=== PATIENT | male | born 1950 | race Caucasian/White ===

== ENCOUNTER 2016-07-23 14:42 | Emergency (ER) | payer MEDICARE, OTHER ==
[~2016-07-23] VITALS: Ht 190.5 cm; Wt 120.0 kg
[~2016-07-23 14:42] MED LIST: ATEN25TA7 PO; COR200 PO; GLUCOSAMINE PO; LOV100 SQ; SMV40T PO; WARF10TA2 PO; [UNRECOGNIZED DRUG - CODE] PO
[2016-07-23 15:10] VITALS: BP 123/70; PULSE 60; RESP 16; O2SAT 97
--- NOTE | 2016-07-23 15:37 | ED.REPORT ---
HPI-Trauma Multiple Date of Service Jul 23, 2016 ED Provider: Wero Galvin MD Abdulkadir is a 66-year-old male who presents the emergency department for left- sided rib pain. Patient states that he slipped while climbing this pickup truck , fell on his hands and knees on a tailgate and then fell off the back of tailgate, landing on his back. He reports pain in his left lower ribs, aggravated by deep breaths. He reports that the pain was initially mild and has worsened since the incident. He reports he struck his head but denies losing consciousness, vomiting, seizures, worsening headache. He does admit taking warfarin for an artificial aortic valve. He denies neck pain or neurological symptoms. Currently takes hydrocodone/APAP 10/500 for chronic back pain. Nursing Notes Stated Complaint: FELL/HIP PAIN Chief Complaint: Back Pain or Injury Nursing Notes Reviewed: Yes Allergies: Coded Allergies: No Known Allergies (Verified , 04/18/09) Scheduled Amiodarone-Expunged Drug, Do Not Renew! (Amiodarone-Expunged Drug, Do Not Renew! ) 200 Mg Tablet 400 MG PO BID Atenolol-Expunged Drug, Do Not Renew! (Atenolol-Expunged Drug, Do Not Renew!) 25 Mg Tablet 25 MG PO DAILY Enoxaparin-Expunged Drug, Do Not Renew! (Lovenox-Expunged Drug, Do Not Renew!) 100 Mg/Ml Disp.syrin 100 MG SQ BID Lidocaine (Lidoderm) 700 Mg Adh..patch 1 PATCH TP UD Oxcarbazepine-Expunged Drug, Do Not Renew! (Trileptal-Expunged Drug, Do Not Renew!) 150 Mg Tablet 150 MG PO DAILY Simvastatin-Expunged Drug, Choose New Med! (Simvastatin-Expunged Drug, Choose New Med!) 40 Mg Tablet 40 MG PO QAM Warfarin Sodium Inactive Drug Do Not Use (Coumadin Inactive Drug Do Not Use) 10 Mg Tablet 10 MG PO SEE NOTES ON SUN, TUES, WED, FRI, SAT Warfarin Sodium Inactive Drug Do Not Use (Coumadin Inactive Drug Do Not Use) 10 Mg Tablet 12.5 MG PO MON, THUR Scheduled PRN Glucosamine Sulfate (Glucosamine) Tab 1,500 MG PO QAM PRN PRN General Time Seen by Provider: 15:36 Chief Complaint Other (left rib pain) Review of Systems Review of Systems Note: Negative unless stated otherwise in history of present illness Physical Exam General: Well appearing, well developed, well nourished, no acute distress. Left ribs: Patient is lying on a gurney splinting with a pillow. Very tender left lateral ribs. Head: Atraumatic, normocephalic. No mastoid tenderness. Eyes: No scleral icterus or injection. No discharge. PERRL. Vision grossly intact. Ears: Pinna and tragus nontender with manipulation. External auditory canal patent, atraumatic and without discharge. Tympanic membrane hernadez, shiny and translucent without fluid, bulging, retraction or perforation. Hearing grossly intact. Nose: Symmetrical, nares patent without discharge. No frontal or maxillary sinus tenderness. Mouth/pharynx: normal dentition, mucus membranes moist. Tonsils 2+ and symmetrical, uvula midline. Pharynx noninjected, no cobblestoning or discharge. Voice clear. Neck: No midline cervical tenderness. Trachea midline. Respiratory: Regular rate and rhythm. Breath sounds present, clear to auscultation and equal bilaterally. Cardiovascular: Regular rate and rhythm, without murmur, gallop or rub. No pedal edema. Gastrointestinal: Abdomen flat and non-tender without guarding or rebound. Bowel sounds normoactive. Skin: Warm and dry. Neurological: Grossly nonfocal. Cranial nerves: Vision grossly intact, PERRL, EOMI. Facial motion symmetrical, sensation to light touch over forehead, maxilla and mandible present and equal B /L. Voice clear and fluent, no drooling/pooling of saliva, uvula rises midline. Psychological: Alert and oriented. Speech appropriate, linear and logical. Behavior appropriate. Initial Vital Signs Vital Signs (First) Date Time Temp Pulse Resp B/P Pulse Ox O2 Delivery O2 Flow Rate FiO2 07/23/16 15:10 36.4 60 16 123/70 97 Room Air Initial VS: Reviewed, Vital signs normal Interpretation & Diagnostics Lab Results Interpretation Result Diagram: 07/23/16 1623 07/23/16 1623 Test 07/23/16 16:23 White Blood Count 11.3th/mm3 (3.8-10.1) Red Blood Count 4.49mil/mm3 (4.40-5.80) Hemoglobin 13.2g/dL (13.8-17.2) Hematocrit 40.7% (41.0-50.0) Mean Corpuscular Volume 90.6fL (81-100) Mean Corpuscular Hemoglobin 29.4pg (27.0-35.0) Mean Corpuscular Hemoglobin Concent 32.4% (32.0-37.0) Red Cell Distribution Width 14.9% (12.3-15.4) Platelet Count 190bil/L (150-400) Neutrophils (%) (Auto) 79.9% (40-74) Lymphocytes (%) (Auto) 8.1% (14-46) Monocytes (%) (Auto) 9.4% (4-12) Eosinophils (%) (Auto) 2.0% (0-5) Basophils (%) (Auto) 0.2% (0-3) Prothrombin Time 30.4sec (8.1-12.5) Prothromb Time International Ratio 2.78ratio Sodium Level 139mEq/L (134-144) Potassium Level 4.5mEq/L (3.5-5.2) Chloride Level 102mEq/L (97-108) Carbon Dioxide Level 24mmol/L (18-29) Blood Urea Nitrogen 20mg/dL (8-27) Creatinine 1.00mg/dL (0.76-1.27) Estimat Glomerular Filtration Rate 79mL/min (>59) Glucose Level 112mg/dL (60-99) Calcium Level 9.2mg/dL (8.5-10.1) Total Bilirubin 0.5mg/dL (0.0-1.2) Aspartate Amino Transf (AST/SGOT) 26U/L (0-50) Alanine Aminotransferase (ALT/SGPT) 20U/L (0-44) Alkaline Phosphatase 65U/L (25-160) Total Protein 6.8g/dL (6.4-8.4) Albumin 4.1g/dL (3.4-5.0) Hold Hobbs Top Tube Received (Received) X-Ray Chest Interpretation Chest Xray Interpretation: PROCEDURE: X-RAY LEFT RIBS, TWO VIEWS ([id number]) INDICATIONS: trauma , fall IMPRESSION: Displaced lateral left rib fractures. No pneumothorax. Interpretation / Wet Read by: Interpret - Radiologist, Interp - P CT Head Interpretation PROCEDURE: CT BRAIN WITHOUT CONTRAST ([id number]) INDICATIONS: truama, on coumadin IMPRESSION: 1. No acute intracranial disease process. 2. Small right thalamic subacute versus chronic lacunar infarct. 3. Small, chronic right cerebellar hemisphere lacunar infarct. Re-Eval/Medical Decision Med Decision/Clinical Course Otherwise healthy 66-year-old male presents with a chief complaint of left rib pain and patient states that he fell while trying to climb into the back of his pickup truck and landed on his back. Admits hitting his head but denies losing consciousness, vomiting, worsening headache. Admits use of blood thinners. Patient reports that his rib pain has steadily been worsening since the incident. Admits pain with inspiration. Denies shortness of breath. Physical exam is reassuring regarding head injury or neck injury with no neurological deficits. The patient is quite tender over his left lower lateral ribs. Head CT performed out of consideration for warfarin use reveals no intracranial bleeding but does reveal old lacunar infarcts. Patient states this is consistent with his medical history. CBC reveals slight leukocytosis and extremely slight anemia. INR is within therapeutic window. X-ray of the ribs reveals mildly displaced rib fractures. Prescribe him incentive spirometry to be performed every hour while awake. The patient takes hydrocodone/APAP 10/500 every evening for back pain. I advised him to take 2 extra strength Tylenol every 6 hours and replace one of the pills with his usual pain pill if he needed additional analgesia. I also prescribed Lidoderm patch. I discussed all findings with the patient and his family, answered all questions to the best of my ability. Advised primary care follow-up in one week and gave return precautions. Discharge & Departure Impression: Primary Impression: Rib fractures Encounter type: initial encounter Rib fracture type: multiple ribs Fracture type: closed Laterality: left Qualified Code: S22.42XA - Multiple fractures of ribs, left side, initial encounter for closed fracture Disposition: Home Discharge Condition All VS Reviewed: Yes Condition: Stable Patient Instructions: Rib Fracture (ED) Additional Instructions: Evaluation for left rib pain emergency Department. We were initially concerned about a possible head injury due to your use of blood thinners. CT was reassuring on his front, but did show evidence of some old, small strokes. X- ray reveals fractures in your left ribs, but no damage to the lungs. treatment for this is typically symptomatic, with pain control, and preventative with incentive spirometry to prevent pneumonia. I have prescribed Lidoderm patches for pain. To this he should add 1000 mg of Tylenol (2 extra strength) every 6 hours. Feeding more pain control you can replace one of the Tylenol pills with your usual Vicodin pill. Follow up with her primary care provider in about 1 week to make sure this is healing as expected. Return to emergency department for any new or worsening symptoms including increasing pain or difficulty breathing. Referrals: Teddy Patiño MD (PCP) EDSupervising Provider for APC: Wero Galvin MD Attending Statement Attending attestation: I saw this patient in conjunction with Robson Fernández PA-C. Patient was discussed in detail and I agree with the workup, evaluation, treatment and disposition. Wero Galvin MD copies to: Teddy Patiño MD, Beck O MD Jul 23, 2016 15:37 Robson Fernández PA-C Jul 23, 2016 16:41
--- NOTE | 2016-07-23 16:23 | DRSVH ---
PROCEDURE: X-RAY LEFT RIBS, TWO VIEWS ([id number]) INDICATIONS: trauma , fall TECHNIQUE: 4 views of the left ribs were acquired. COMPARISON: None. FINDINGS: Surgical changes and devices: Patient is status post CABG. The cardiac defibrillator is unremarkable. Bones and chest wall: There are minimally displaced lateral left seventh and eighth ribs. No pneumoth orax. Mild atelectasis is present at the left lung base. Lungs and pleura: The visualized lung appears clear. No pleural effusions or pneumothorax are visib le. IMPRESSION: Displaced lateral left rib fractures. No pneumothorax. Dictated by: Juliette Ngo M.D. on 07/23/2016 at 16:19 Approved by: Juliette Ngo M.D. on 07/23/2016 at 16:21
--- NOTE | 2016-07-23 16:27 | DRSVH ---
PROCEDURE: CT BRAIN WITHOUT CONTRAST ([id number]) INDICATIONS: truama, on coumadin TECHNIQUE: Noncontrast 4.5 mm thick angled axial sections acquired from the foramen magnum to the vertex, with c oronal reformats. COMPARISON: [facility], CT, BRAIN W/O CONTRAST, 05/16/2007, 0:29. FINDINGS: Image quality: Excellent. CSF spaces: Basal cisterns are patent. No extra-axial fluid collections. Ventricles are normal in size and shape. Brain: No midline shift. No intracranial masses or hemorrhage. Oropeza-white matter interface is norm al. Small subacute versus chronic lacunar infarct noted in the right thalamus. Chronic right cerebell ar hemisphere lacunar infarct. Skull and face: Calvarium and visualized facial bones are intact, without suspicious lesions. Sinuses: Mucosal thickening noted in the maxillary sinuses bilaterally and the left sphenoid sinus. T he mastoids are clear. IMPRESSION: 1. No acute intracranial disease process. 2. Small right thalamic subacute versus chronic lacunar infarct. 3. Small, chronic right cerebellar hemisphere lacunar infarct. Dictated by: Judi Olivares MD, PhD on 07/23/2016 at 16:23 Approved by: Judi Olivares MD, PhD on 07/23/2016 at 16:26
[2016-07-23 16:38] LABS: BASOPHILS % (AUTO) 0.2 % (0-3); MONOCYTES % (AUTO) 9.4 % (4-12); Mean Corpuscular Hemoglobin 29.4 pg (27.0-35.0); Mean Corpuscular Volume 90.6 fL (81-100); NEUTROPHILS % (AUTO) 79.9 % (40-74); Platelet Count 190 bil/L (150-400)
[2016-07-23] MEDS ORDERED: Ketorolac 30 mg/mL 2 mL Inj IM ONE (16:45)
[2016-07-23 16:52] LABS: INR 2.78 ratio
[2016-07-23] MEDS ORDERED: LIDO700A6 TP (16:58)
[2016-07-23 18:17] VITALS: BP 132/71; PULSE 64; RESP 18; O2SAT 94
== END 2016-07-23 18:18 | disposition home or self-care (01) ==
LOC: SED 14:42
DX: S22.42XA Multiple fractures of ribs, left side, initial encounter for closed fracture (principal); W17.89XA Other fall from one level to another, initial encounter; Y93.39 Activity, other involving climbing, rappelling and jumping off; Y92.812 Truck as the place of occurrence of the external cause; Y99.8 Other external cause status; Z79.01 Long term (current) use of anticoagulants

== ENCOUNTER 2016-07-26 19:29 | Inpatient (IN) | payer MEDICARE, OTHER ==
[~2016-07-26] VITALS: Ht 190.5 cm; Wt 113.2 kg
[~2016-07-26 19:29] MED LIST changes: +LIDO700A6 TP
[2016-07-26 19:36] VITALS: BP 90/62; PULSE 70; RESP 16; O2SAT 99
--- NOTE | 2016-07-26 19:44 | ED.REPORT ---
HPI-General Illness Date of Service Jul 26, 2016 ED Provider: Federica Castillo MD This is a 66 year old male with a history hypertension and recent diagnosis of left rib fracture presenting to the emergency department complaining of worsening pain associated with shortness of breath. Pt seen in the ED one week ago and diagnosed with L rib fracture without pneumothorax due to traumatic injury. Pain is now worsening and exacerbated by deep inspiration. Associated symptoms include abdominal distention that began one day ago. Pt states pain and abdominal distention is causing shortness of breath. Also reports reports decreased flatus. Denies abdominal pain, fever, chills, nausea, vomiting, or cough. Nursing Notes Stated Complaint: RIB PAIN Chief Complaint: General Complaint Nursing Notes Reviewed: Yes Allergies: Coded Allergies: No Known Allergies (Verified , 07/26/16) Scheduled Amiodarone-Expunged Drug, Do Not Renew! (Amiodarone-Expunged Drug, Do Not Renew! ) 200 Mg Tablet 400 MG PO BID Atenolol-Expunged Drug, Do Not Renew! (Atenolol-Expunged Drug, Do Not Renew!) 25 Mg Tablet 25 MG PO DAILY Enoxaparin-Expunged Drug, Do Not Renew! (Lovenox-Expunged Drug, Do Not Renew!) 100 Mg/Ml Disp.syrin 100 MG SQ BID Lidocaine (Lidoderm) 700 Mg Adh..patch 1 PATCH TP UD Oxcarbazepine-Expunged Drug, Do Not Renew! (Trileptal-Expunged Drug, Do Not Renew!) 150 Mg Tablet 150 MG PO DAILY Simvastatin-Expunged Drug, Choose New Med! (Simvastatin-Expunged Drug, Choose New Med!) 40 Mg Tablet 40 MG PO QAM Warfarin Sodium Inactive Drug Do Not Use (Coumadin Inactive Drug Do Not Use) 10 Mg Tablet 10 MG PO SEE NOTES ON SUN, TU, WED, FRI, SAT Warfarin Sodium Inactive Drug Do Not Use (Coumadin Inactive Drug Do Not Use) 10 Mg Tablet 12.5 MG PO SAT, Scheduled PRN Glucosamine Sulfate (Glucosamine) Tab 1,500 MG PO QAM PRN PRN General Time Seen by MD: 19:43 Chief Complaint Other Hx Obtained From: Patient Arrived By: Walk-in Sudden in Onset?: Yes Onset Occurred: 1 week ago Symptom Duration: Since onset Severity: Current: Mild Pertinent Negative: Pt denies other symptoms Recent Healthcare: No recent doctor visit, No recent hospitalization Similar Sx Previous: No Past Medical History Past Medical History Hx rib fracture Reports: Hypertension Past Surgical History Open heart surgery Mechanical valve Ambulatory Status Independent Review of Systems Full Review of Systems Constitutional: Denies: Chills, Fever Ears / Nose / Throat: Denies: Sore throat Respiratory: Reports: Shortness of breath, Denies: Non-productive cough Cardiovascular: Reports: Chest pain (rib pain ) GI: Reports: Constipation, Denies: Abdominal pain, Diarrhea, Nausea, Vomiting Complete sys rev & neg: except as marked. Physical Exam Vital Signs Vital Signs Date Time Temp Pulse Resp B/P Pulse Ox O2 Delivery O2 Flow Rate FiO2 07/26/16 22:41 36.3 58 16 131/79 93 Room Air 07/26/16 19:36 36.7 70 16 90/62 99 Room Air Initial VS: Reviewed Head / Eyes: Atraumatic, Normocephalic, PERRL ENT: Mucous membranes moist, Conjunctiva normal, No scleral icterus Neck: Supple, Non-tender, Full range of motion Cardiovascular: Regular rate & rhythm, Heart sounds normal, Intact distal pulses Extremities: Vascular intact, Neuro intact, No swelling, No tenderness Skin: Warm, Dry, No cyanosis Neurologic: Alert, Oriented, Nonfocal Psychiatric: Mood/affect normal, Behavior normal, Normal thought content Respiratory / Chest: Breath sounds NL, No respiratory distress, No rales, No rhonchi, No wheezing Point tenderness on left mid-axillary line approximately at ribs 4-10 without obvious trauma or defomirty Abdomen: Non-tender, No rebound, BS normoactive Bowel Sounds / Distention: Positive: Distention moderate Abdomen tense without fluid wave, easily reducible umbilical hernia Interpretation & Diagnostics Interpretation & Diagnostics: ABD CT IMPRESSION: 1. Evolving mid small bowel obstruction with transition point in the right lower quadrant. In the absence of any associated hernias or mass lesions, obstruction is presumably secondary to adhesions. No findings to suggest bowel ischemia. 2. Posterior left lung base confluent atelectasis versus pneumonia. 3. Cardiomegaly hepatic simple cyst again noted, as well as inferior left renal cortical exophytic simple cyst. Previously noted hemorrhagic or proteinaceous hyperdense cyst arising from the medial right kidney has decreased in size. Dictated by: Louie Isaac M.D. on 07/26/2016 at 21:29 Approved by: Louie Isaac M.D. on 07/26/2016 at 21:41 Lab Results Interpretation Result Diagram: 07/26/16202607/26/162026 Test 07/26/16 20:27 07/26/16 22:18 White Blood Count 11.4th/mm3 (3.8-10.1) Red Blood Count 4.64mil/mm3 (4.40-5.80) Hemoglobin 13.6g/dL (13.8-17.2) Hematocrit 41.4% (41.0-50.0) Mean Corpuscular Volume 89.2fL (81-100) Mean Corpuscular Hemoglobin 29.3pg (27.0-35.0) Mean Corpuscular Hemoglobin Concent 32.9% (32.0-37.0) Red Cell Distribution Width 14.8% (12.3-15.4) Platelet Count 195bil/L (150-400) Neutrophils (%) (Auto) 79.5% (40-74) Lymphocytes (%) (Auto) 6.2% (14-46) Monocytes (%) (Auto) 13.0% (4-12) Eosinophils (%) (Auto) 0.8% (0-5) Basophils (%) (Auto) 0.2% (0-3) Prothrombin Time 47.4sec (8.1-12.5) Prothromb Time International Ratio 4.30ratio Sodium Level 135mEq/L (134-144) Potassium Level 4.0mEq/L (3.5-5.2) Chloride Level 99mEq/L (97-108) Carbon Dioxide Level 22mmol/L (18-29) Blood Urea Nitrogen 38mg/dL (8-27) Creatinine 1.13mg/dL (0.76-1.27) Estimat Glomerular Filtration Rate 69mL/min (>59) Glucose Level 108mg/dL (60-99) Lactic Acid Level 1.0mmol/L (0.4-2.0) Calcium Level 9.6mg/dL (8.5-10.1) Magnesium Level 1.8mg/dL (1.6-2.6) Total Bilirubin 1.1mg/dL (0.0-1.2) Aspartate Amino Transf (AST/SGOT) 25U/L (0-50) Alanine Aminotransferase (ALT/SGPT) 20U/L (0-44) Alkaline Phosphatase 67U/L (25-160) Total Protein 6.4g/dL (6.4-8.4) Albumin 3.9g/dL (3.4-5.0) Lipase 11U/L (13-60) Urine Color Dark yellow (YELLOW) Urine Appearance Clear (CLEAR,HAZY) Urine pH 5.0 (5.0-8.0) Urine Specific [place] 1.025 (1.003-1.035) Urine Protein Tracemg/dL (NEG,TRACE) Urine Glucose (UA) Negativemg/dL (NEGATIVE) Urine Ketones Negativemg/dL (NEGATIVE) Urine Occult Blood Trace (NEGATIVE) Urine Nitrite Negative (NEGATIVE) Urine Bilirubin Moderate (NEGATIVE) Urine Ictotest Positive (Negative) Urine Urobilinogen 1.0mg/dL (NORMAL) Urine Leukocyte Esterase Negative (NEGATIVE) Urine RBC 11-50/hpf (0-2) Urine WBC 0-5/hpf (0-5) Urine Epithelial Cells Moderate/hpf (NONE-MOD) Urine Crystals Amorphous urates (NONE Urine Bacteria Few/hpf (NONE-FEW) Urine Hyaline Casts 5/20/lpf (NONE) Urine Granular Casts None seen (NONE SEEN) Urine Waxy Casts None seen (NONE SEEN) Urine Red Blood Cell Casts None seen (NONE SEEN) Urine White Blood Cell Casts None seen (NONE SEEN) Urine Mucus Present (None Seen) Urine Trichomonas None seen (NONE SEEN) Urine Yeast None (NONE SEEN) Urinalysis Comment None Urine Culture Reflexed Not indicated Re-Eval/Medical Decision Med Decision/Clinical Course 66-year-old male with extensive past medical history including mechanical valve here with worsening pain with inspiration and abdominal distention. Differential diagnosis includes but is not limited to pneumonia versus pleural effusion versus large versus small bowel obstruction. Labs remarkable for mild leukocytosis and mild anemia, otherwise normal CBC. CMP is unremarkable. Patient's CT scan shows evidence of a small bowel obstruction with transition point in the right lower quadrant. I discussed the case with surgeon evaluation specialist Dr. Mcgee who will see the patient in the morning. Patient has been accepted by hospitalist service and is amenable to admission at this time. Dr. Mcgee did not request NG tube at this time since patient is not vomiting. Time of Eval: 22:02 Re-Evaluation/Progress Note: Discussed lab and imaging results and need for admission. Pt understands and agrees with plan, all questions addressed. Consultation #1: Referral / Consult Name: Mahendra Mcgee MD Consulted With: Surgeon Call Returned at: 22:02 Neurosurgery Spine Physician: Will see patient, Agrees with eval, Agrees with plan Consultation #2: Referral / Consult Name: Thor Cintron MD Consulted With: Hospitalist Call Returned at: 22:12 Neurosurgery Spine Physician: Accepts admit Counseled Regarding: Diagnosis, Lab results, Need for follow-up, Need for admission Discharge & Departure Primary Impression: Small bowel obstruction Disposition: ADMITTED TO HOSPITAL Discharge Condition All VS Reviewed: Yes Condition: Stable Referrals: Teddy Patiño MD (PCP) Scribe Attestation Portions of this note were transcribed by Jodee Ulloa. I, Dr. Castillo personally performed the history, physical exam and medical decision-making; I reviewed and confirmed the accuracy of the information in the transcribed note. Signed by: Jodee Ulloa. 07/26/2016, 23:00. Federica Castillo MD Jul 26, 2016 19:44 JODEE ULLOA Jul 26, 2016 19:46
[2016-07-26 20:46] LABS: BASOPHILS % (AUTO) 0.2 % (0-3); EOSINOPHILS % (AUTO) 0.8 % (0-5); Mean Corpuscular Hemoglobin 29.3 pg (27.0-35.0); Mean Corpuscular Volume 89.2 fL (81-100); NEUTROPHILS % (AUTO) 79.5 % (40-74); Platelet Count 195 bil/L (150-400)
[2016-07-26 21:06] LABS: Magnesium 1.8 mg/dL (1.6-2.6)
[2016-07-26] MEDS ORDERED: 0.9% Sodium Chloride 500 ML IV ONE (21:40)
--- NOTE | 2016-07-26 21:47 | DRSVH ---
PROCEDURE: CT ABDOMEN AND PELVIS WITH CONTRAST ([id number]) INDICATIONS: 66 year-old male with abdominal distention. TECHNIQUE: After the administration of intravenous contrast, 5 mm thick sections acquired from the diaphragm to the symphysis. 5 mm coronal and sagittal reformats were acquired. For radiation dose reduction, the following was used: automated exposure control, adjustment of mA and/or kV according to patient siz e. COMPARISON: [facility], CT, ABD/PELVIS W&WO CON (PNL), 11/30/2011, 9:46. FINDINGS: Image quality: Excellent. ABDOMEN: Lung bases: There is patchy posterior right lung base atelectasis, and more confluent posterior left lung base airspace opacity with internal air bronchograms. There is mild cardiomegaly status post pac emaker placement and median sternotomy. There is bilateral gynecomastia. Solid organs: Liver and spleen are normal in size. 3.2 cm caudate lobe hepatic simple cyst is prese nt. Gallbladder is surgically absent. Biliary system is non dilated. Pancreas enhances normally. N o adrenal nodules. Kidneys demonstrate normal size, without hydronephrosis. 3.3 cm inferior left yan al cortical exophytic simple cyst is again noted. Previously noted medial right renal exophytic hyper dense cyst has decreased in size, reassuring for benignity. Peritoneum and bowel: There is mild distention of multiple small bowel loops, with transition point noted in the right lower quadrant on axial image 73. Distal small bowel loops appear decompressed. Co susan appears normal in overall caliber. Bowel wall thickness appears normal throughout. No free fluid or air. Nodes and vessels: No retroperitoneal or mesenteric adenopathy by size criteria. Aorta and inferior vena cava are normal in size, with moderate aortoiliac atherosclerosis. Miscellaneous: No ventral hernias. PELVIS: Genitourinary: Bladder wall thickness is normal. The prostate gland is normal in overall size. Miscellaneous: No inguinal hernias or adenopathy. Bones: No suspicious bony lesions. No vertebral body compression fractures. There is mid and lower lumbar spine disc degeneration. IMPRESSION: 1. Evolving mid small bowel obstruction with transition point in the right lower quadrant. In the abs ence of any associated hernias or mass lesions, obstruction is presumably secondary to adhesions. No findings to suggest bowel ischemia. 2. Posterior left lung base confluent atelectasis versus pneumonia. 3. Cardiomegaly hepatic simple cyst again noted, as well as inferior left renal cortical exophytic si mple cyst. Previously noted hemorrhagic or proteinaceous hyperdense cyst arising from the medial righ t kidney has decreased in size. Dictated by: Louie Isaac M.D. on 07/26/2016 at 21:29 Approved by: Louie Isaac M.D. on 07/26/2016 at 21:41
[2016-07-26] MEDS ORDERED: Polyethylene Glycol (PEG) 17 Gm Powder PO PRN (22:15)
[2016-07-26] MEDS ORDERED: Alum-Mag Hydrox-Simeth 30 mL Suspension PO PRN (22:15)
[2016-07-26] MEDS ORDERED: Ondansetron 2 mg/mL 2 mL Inj IVPUSH PRN (22:15)
[2016-07-26 22:26] LABS: INR 4.3 ratio
[2016-07-26 22:30] LABS: APPEARANCE,URINE CLEAR (CLEAR,HAZY)
[2016-07-26 22:31] LABS: OCCULT BLOOD,URINE TRACE (NEGATIVE)
[2016-07-26 22:40] LABS: COLOR,URINE DARK YELLOW (YELLOW); ICTOTEST,URINE POSITIVE (Negative)
[2016-07-26 23:34] VITALS: BP 134/79; PULSE 65; RESP 20; O2SAT 95
[2016-07-26] MEDS: 0.9% Sodium Chloride 1,000 ML IV SCH (23:55)
[2016-07-27] MEDS ORDERED: Polyethylene Glycol (PEG) 17 Gm Powder PO ONE (00:25)
--- NOTE | 2016-07-27 00:45 | PCM.HPMED ---
Subjective Date of Service Jul 26, 2016 Primary Provider: Admitting Physician: Primary Care Physician: Teddy Patiño MD Attending Physician: Chief Complaint: Abdominal pain History of Present Illness: Abdulkadir Mccain is a 66 year old male with Hypertension, Aortic Valve replacement and Chronic A fib and recent diagnosis of left rib fracture presenting to the emergency department complaining of worsening pain associated with shortness of breath. Patient reported not having a bowel movement since before Saturday. Decreased appetite with abdominal discomfort with feeling bloated. Cause trouble taking a deep breathe. He is passing a little bit of gas. Denies abdominal pain, fever, chills, nausea, vomiting, or cough. No prior history of small bowel obstructions. Currently on daily regimen on Vidalia but patient does not take a laxative daily Pt seen in the ED one week ago and diagnosed with L rib fracture without pneumothorax due to traumatic injury Case discussed with Dr Cook, she spoke to Dr Mcgee from surgery. Patient will be admitted Review of Systems: Pertinent positives as noted in HPI. All other systems were reviewed and are negative Allergies Coded Allergies: No Known Allergies (Verified , 07/26/16) Home Medications From [facility], not yet confirmed Abdulkadir Mccain [id number] 1950 06/22/2016 02:00 PM 06/21 amiodarone 200 mg tablet take 1 tablet (200MG) by oral route every day for heart carvedilol 12.5 mg tablet take 1/2 tablet (6.25MG) by oral route 2 times every day with food for heart lisinopril 10 mg tablet take 1 tablet (10MG) by oral route every day for high blood pressure. methocarbamol 750 mg tablet take 2 tablet (1500MG) by ORAL route every 12 hours Vidalia 10 mg-325 mg tablet take 1 tablet by ORAL route 1 - 2 times every day as needed for pain. triamcinolone acetonide 0.1 % topical cream apply by topical route 2 times every day a thin layer to the affected area(s) Trileptal 150 mg Tab take 1 tablet (150MG) by ORAL route 2 times every day WARFARIN TABS 5MG TAKE 1 TABLET (5 MG) MON, WED, FRI AND TAKE ONE AND ONE-HALF TABLETS (7.5 MG) ALL OTHER DAYS OF THE WEEK OR DIRECTED BY COUMADIN CLINIC. PMH Chronic pain syndrome on narcotic Aortic Valve replacement secondary to Stenosis ICD placement Chronic Atrial fibrillation Cardiomyopathy Palpitations with Ventricular tachycardia Surgical History Mechanical aortic valve replacement Dual chamber pacemaker placement Cardiac catheterization Thoracic aneurysm repair Appendectomy Vasectomy Family History No family history of premature coronary artery disease Social History Hx Alcohol Use: Yes (occasional) Hx Substance Use: No Hx Tobacco Use: No Smoking Status: Never Smoker Living Arrangement: with Family Exam Vital Signs Vital Sign - Last Date Time Temp Pulse Resp B/P Pulse Ox O2 Delivery O2 Flow Rate FiO2 07/26/16 19:36 36.7 70 16 90/62 99 Room Air Exam General: Alert, Oriented X3, Cooperative, No acute Distress Eyes: PERRLA, Scleral Anicteric Mouth: Mouth Normal, Mucous Membranes Moist/[place] Neck: Supple, no Thyromegaly, trachea central. Chest & Lungs: Clear to auscultation & percussion, No adventitious breath sounds, no crackles, no wheeze Cardiovascular: Normal S1, Normal S2, No Murmurs/Rubs/Gallops, Regular Rate/ Rhythm, (No JVD, no peripheral edema) Pulses: Radial (present and equal), Dorsalis Pedi (present and equal) Abdomen: Soft, mild diffuse tenderness, mild distended, hypoactive bowel tones. Musculoskeletal: Unremarkable. Normal range of motion, no swollen or erythematous joints Extremities: No edema, no cyanosis, no clubbing. Skin: No rashes. Warm and dry, no erythematous areas Neurological: Grossly neurologically intact, Normal Speech, Sensation Intact Lymphatic: Lymph nodes Cervical and Axillary not palpable. Lab and Diagnostics Labs Laboratory Tests Test 07/26/16 20:27 White Blood Count 11.4th/mm3 (3.8-10.1) Red Blood Count 4.64mil/mm3 (4.40-5.80) Hemoglobin 13.6g/dL (13.8-17.2) Hematocrit 41.4% (41.0-50.0) Mean Corpuscular Volume 89.2fL (81-100) Mean Corpuscular Hemoglobin 29.3pg (27.0-35.0) Mean Corpuscular Hemoglobin Concent 32.9% (32.0-37.0) Red Cell Distribution Width 14.8% (12.3-15.4) Platelet Count 195bil/L (150-400) Neutrophils (%) (Auto) 79.5% (40-74) Lymphocytes (%) (Auto) 6.2% (14-46) Monocytes (%) (Auto) 13.0% (4-12) Eosinophils (%) (Auto) 0.8% (0-5) Basophils (%) (Auto) 0.2% (0-3) Sodium Level 135mEq/L (134-144) Potassium Level 4.0mEq/L (3.5-5.2) Chloride Level 99mEq/L (97-108) Carbon Dioxide Level 22mmol/L (18-29) Blood Urea Nitrogen 38mg/dL (8-27) Creatinine 1.13mg/dL (0.76-1.27) Estimat Glomerular Filtration Rate 69mL/min (>59) Glucose Level 108mg/dL (60-99) Lactic Acid Level 1.0mmol/L (0.4-2.0) Calcium Level 9.6mg/dL (8.5-10.1) Magnesium Level 1.8mg/dL (1.6-2.6) Total Bilirubin 1.1mg/dL (0.0-1.2) Aspartate Amino Transf (AST/SGOT) 25U/L (0-50) Alanine Aminotransferase (ALT/SGPT) 20U/L (0-44) Alkaline Phosphatase 67U/L (25-160) Total Protein 6.4g/dL (6.4-8.4) Albumin 3.9g/dL (3.4-5.0) Lipase 11U/L (13-60) Result Diagram: 07/26/16202607/26/162026 X-Rays, CTs and MRIs CT ABDOMEN AND PELVIS WITH CONTRAST 07/26 INDICATIONS: 66 year-old male with abdominal distention. TECHNIQUE: After the administration of intravenous contrast, 5 mm thick sections acquired from the diaphragm to the symphysis. 5 mm coronal and sagittal reformats were acquired. For radiation dose reduction, the following was used: automated exposure control, adjustment of mA and/or kV according to patient size. COMPARISON: [facility], CT, ABD/PELVIS W&WO CON (PNL), 11/30/2011, 9 :46. FINDINGS: Image quality: Excellent. ABDOMEN: Lung bases: There is patchy posterior right lung base atelectasis, and more confluent posterior left lung base airspace opacity with internal air bronchograms. There is mild cardiomegaly status post pacemaker placement and median sternotomy. There is bilateral gynecomastia. Solid organs: Liver and spleen are normal in size. 3.2 cm caudate lobe hepatic simple cyst is present. Gallbladder is surgically absent. Biliary system is non dilated. Pancreas enhances normally. No adrenal nodules. Kidneys demonstrate normal size, without hydronephrosis. 3.3 cm inferior left renal cortical exophytic simple cyst is again noted. Previously noted medial right renal exophytic hyperdense cyst has decreased in size, reassuring for benignity. Peritoneum and bowel: There is mild distention of multiple small bowel loops, with transition point noted in the right lower quadrant on axial image 73. Distal small bowel loops appear decompressed. Colon appears normal in overall caliber. Bowel wall thickness appears normal throughout. No free fluid or air. Nodes and vessels: No retroperitoneal or mesenteric adenopathy by size criteria. Aorta and inferior vena cava are normal in size, with moderate aortoiliac atherosclerosis. Miscellaneous: No ventral hernias. PELVIS: Genitourinary: Bladder wall thickness is normal. The prostate gland is normal in overall size. Miscellaneous: No inguinal hernias or adenopathy. Bones: No suspicious bony lesions. No vertebral body compression fractures. There is mid and lower lumbar spine disc degeneration. IMPRESSION: 1. Evolving mid small bowel obstruction with transition point in the right lower quadrant. In the absence of any associated hernias or mass lesions, obstruction is presumably secondary to adhesions. No findings to suggest bowel ischemia. 2. Posterior left lung base confluent atelectasis versus pneumonia. 3. Cardiomegaly hepatic simple cyst again noted, as well as inferior left renal cortical exophytic simple cyst. Previously noted hemorrhagic or proteinaceous hyperdense cyst arising from the medial right kidney has decreased in size. Dictated by: Louie Isaac M.D. on 07/26/2016 at 21:29 Approved by: Louie Isaac M.D. on 07/26/2016 at 21:41 Assessment & Plan Abdulkadir Mccain is a 66 year old male with Hypertension, Aortic Valve replacement and Chronic A fib and recent diagnosis of left rib fracture presenting to the emergency department complaining of worsening pain associated with shortness of breath. Found to have bowel obstructions. 1. Acute Small bowel obstructions. Present on admission Likely secondary to constipation. He has no extensive abdominal surgery to suggest adhesive disease. - continue conservative approach as patient is not a ideal surgical candidate unless it is a emergency procedure. - nothing by mouth - IV fluids - antinausea medications, consider NG tube placement if symptoms worsens - laxative regimen - Surgical consultation have been requested 2. Chronic Atrial fibrillation on anticoagulation INR 4 supra therapeutic. I do not feel the patient has any ischemic heart disease issues at this point - monitor on telemetry - continue Amiodarone and Carvedilol - holding Coumadin for now, if surgery is planned then transition to Heparin drip 4 Chronic pain syndrome on narcotic - counseled patient on taking a daily laxative due to his daily narcotic medications 5 Aortic Valve replacement - currently on anticoagulations 6. Hypertension - continue Lisinopril - Acetaminophen as needed for mild pain/fever/headache - Bowel regimen as needed - Antiemetic as needed Patient admitted under inpatient status with expected length of stay > 2 midnights for severity of present symptoms, complexities of treatment plan and risk for adverse event . Resuscitation Status: CPR: Attempt Resuscitation Thor Cintron MD Jul 26, 2016 22:18
[2016-07-27] MEDS ORDERED: METH-313 PO (01:08)
[2016-07-27] MEDS ORDERED: HYDR-3740 PO (01:08)
[2016-07-27] MEDS ORDERED: WARF5TAB PO (01:08)
[2016-07-27] MEDS ORDERED: CARV6.252 PO (01:08)
[2016-07-27] MEDS ORDERED: LISI10TA PO (01:08)
[2016-07-27] MEDS ORDERED: AMIO200T PO (01:08)
[2016-07-27] MEDS ORDERED: WARF7.5T PO (01:08)
--- NOTE | 2016-07-27 01:59 | NUR ---
Arrival to Unit Patient arrived to floor at approx 2315. Patient A&OX3, and was able to ambulate to hospital bed via SBA. Patient had difficulty standing up straight due to left rib pain. Patient states left rib pain to be 8/10 when intermittent spasms occur. Patient denies any CP, or current SOB, but appears to breath very shallow. [employer] applied and patients O2 sats are 93% on room air. Deep breathing has been encouraged, and a pillow has been provided so the patient can splint while doing breathing exercises. Incentive Spirometer is at bedside as well. HOB is elevated per patient comfort. IV in left AC is patent and infusing NS @ 100cc/hr. Call light is within reach, and bed is locked and in low position. Will continue to monitor, and continue Q 1 hour checks.
--- NOTE | 2016-07-27 03:33 | NUR ---
Pain Patient is experiencing 9/10 pain from spasms located on the left side of his ribs. 650 Tylenol has been given, but patient has asked for something stronger. Night hospitalist paged, and 1 tab hydrocodone-APAP has been ordered. Care continues
[2016-07-27] MEDS: HYDROcodone-APAP 10-325 mg PO PRN ×3 (03:40→23:47)
[2016-07-27 05:15] VITALS: BP 125/67; PULSE 63; RESP 20; O2SAT 93
[2016-07-27 05:24] LABS: Mean Corpuscular Volume 88.9 fL (81-100)
[2016-07-27 05:40] LABS: INR 4.42 ratio
--- NOTE | 2016-07-27 07:34 | PCM.PHAPRO ---
Progress Abdominal pain Date Jul 27 INR 4.3 4.42 INR change 0.12 Warf Dose UNK hold Teddy Osuna Jul 27, 2016 07:34
[2016-07-27 08:09] LABS: Magnesium 1.7 mg/dL (1.6-2.6)
[2016-07-27] MEDS: 0.9% Sodium Chloride 1,000 ML IV SCH ×2 (09:55→20:13)
--- NOTE | 2016-07-27 10:02 | NUR ---
Case Management: IMM given and explained to pt at 09:25. Teresa DICKENS RN
[2016-07-27] MEDS ORDERED: Acetaminophen IV 1,000 MG in IV Premix 1 EACH IV PRN (10:10)
--- NOTE | 2016-07-27 10:57 | CONS ---
[address] [address] CONSULTATION REPORT PATIENT: CAN ACKERMAN : 1950 MR#: [id number] ADMIT: 07/26/2016 JOB ID: [id number] DATE OF SERVICE: 07/27/2016 REASON FOR CONSULTATION: The patient is seen in consultation at the request of Dr. Castillo regarding further evaluation and management of a partial small bowel obstruction. HISTORY OF PRESENT ILLNESS: The patient is a 66-year-old man with a history of prior abdominal operations who on Saturday fell off the tailgate of his pickup truck and suffered a left rib fracture. He presented to the emergency department for that with diagnosis of rib fracture and was instructed to utilize hydrocodone which he already has for pain control. Shortly thereafter, he tells me, he developed progressive abdominal distention to the point where it became tough to breathe. Yesterday, he presented to the emergency department for this. He denies any significant abdominal pain. He has had no nausea or vomiting. He has lost his appetite for the past two days. His last bowel movement was yesterday after taking a laxative. In the emergency department, he was found to have a mild leukocytosis of 11.4. A CT scan was obtained which I personally reviewed and demonstrates dilated loops of small bowel with a transition point in the right lower quadrant. There is no obvious cause. He was admitted to the hospitalist service overnight. This morning, he continues to complain of abdominal distention and left-sided rib pain. PAST MEDICAL HISTORY: 1. Hypertension. 2. Chronic pain. 3. Chronic atrial fibrillation. 4. Cardiomyopathy. 5. Aortic valve replacement. PAST SURGICAL HISTORY: 1. Mechanical aortic valve (for which he is on Coumadin). 2. Cholecystectomy. 3. Appendectomy. 4. Repair of aortic arch aneurysm. 5. Pacemaker and ICD placement. MEDICATIONS: Current medications are reviewed in the computer. ALLERGIES: The patient has no known drug allergies. FAMILY HISTORY: Family history is reviewed and noncontributory. SOCIAL HISTORY: He lives in [place]. 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 He does not smoke and rarely drinks alcohol. REVIEW OF SYSTEMS: Full review of systems obtained and is positive for left-sided chest pain from his rib fracture, abdominal distention, loss of appetite, and some shortness of breath. All other systems are negative. PHYSICAL EXAMINATION: Vital signs: He has been afebrile since admitted. This morning, his temperature was 36.4, his heart rate 63 beats per minute, blood pressure is 125/67. He is satting 93% on room air with a respiratory rate of 20 breaths per minute. In general, he appears mildly uncomfortable but in no acute distress. Cardiovascular: He has a regular rate and rhythm. No appreciated murmurs, rubs, gallops. Pulmonary: His lungs are clear to auscultation bilaterally. Cardiovascular: No carotid bruit. Neck has no thyromegaly. Lymph: He has no cervical lymphadenopathy. GI: His abdomen is soft but obviously distended. He has mild diffuse tenderness to palpation. Extremities: Warm without significant edema. Skin is warm without rash. Neuro is grossly intact. Psych is pleasant and appropriate. LABORATORIES: White blood cell count this morning is normalized at 8.9, hematocrit is 38.6, his platelet count is 182. His creatinine is down to 0.82 from 1.13. IMAGING: CT scan is personally reviewed and as per the HPI. ASSESSMENT AND PLAN: This is a 66-year-old man with a history of prior intra-abdominal operations, now with a partial small bowel obstruction. I recommend placement of an nasogastric tube. After he has been adequate decompressed, a Gastrografin challenge can be administered with followup films at 4 and 24 hours. I anticipate he will not require surgical management.
[2016-07-27] MEDS: Pantoprazole 4 mg/mL 10 mL Inj IVPUSH SCH (11:08)
[2016-07-27 11:11] VITALS: BP 146/71; PULSE 99; RESP 19; O2SAT 93
--- NOTE | 2016-07-27 13:57 | NUR ---
Social Work: Initial Assessment D: Per EMR review, pt is a 66 year old male admitted for Bowel Obstruction. Pt is Medicare with [facility] [place] Supplement; pt has a LTC policy and no VA benefits. PCP is Teddy Patiño MD. NOK and DPOA is Aga Mccain, /DPOA, . Advanced directives provided by family and copy placed on chart. Readmit score is low, 2/8. CANNON FIRE DIRECTION SPECIALIST met with pt and at bedside. Sw role explained. See initial assessment. Pt lives at home with his in [facility]). Pt is I at baseline, uses no DME and continues to drive. Pt has never had HH or jail. Pt states he lives in a single story home with wheelchair/ramp access. Pt and have no concerns about pt discharging home once medically stable. Pt's will transport. Pt currently with NG tube placed. Surgery is following. A: Pt who is I at baseline. P: Anticipate pt to discharge home with no social work needs pending clinical course; CAN[employer] DIRECTION SPECIALIST to continue to follow and assist with safe discharge planning if needs arise. TORY Ha Addendum: 07/27/16 at 1401 by KIANA ESTRADA Amended: Links added.
--- NOTE | 2016-07-27 14:04 | NUR ---
GI Hypoactive bowel sounds present prior to inserting NGT. Patient tolerated procedure well. About 400ml of drainage output so far, light brown/pink. Patient abdomen feels slightly better. Had had 3 loose/liquid BM's since NGT inserted. Gastrographin challenge initiated and NGT clamped, awaiting 1st xray.
[2016-07-27 15:24] VITALS: BP 157/73; PULSE 76; RESP 17; O2SAT 92
[2016-07-27 20:31] VITALS: BP 123/75; PULSE 66; RESP 20; O2SAT 93
--- NOTE | 2016-07-27 21:23 | DRSVH ---
PROCEDURE: X-RAY GASTROGRAFIN CHALLENGE, 1 VIEW ABDOMEN INDICATIONS: gastrographin challenge TECHNIQUE: One view of the abdomen acquired. COMPARISON: [facility], CT, CT ABD PELVIS W CON, 07/26/2016, 21:16. FINDINGS: Surgical changes and devices: None. Bowel: Bowel gas pattern is grossly unchanged to the wood turning lathe operator image from CT dated 07/26/16. There is con trast material within lower bowel loops Soft tissues: No suspicious abdominal calcifications. Visualized solid organ contours appear normal in size. Bones: No suspicious bony lesions. IMPRESSION: Overall, no definite interval change since 07/26/16 Dictated by: Abdoulaye Gunn M.D. on 07/27/2016 at 21:20 Approved by: Abdoulaye Gunn M.D. on 07/27/2016 at 21:22
--- NOTE | 2016-07-27 22:52 | PCM.PNMED ---
Subjective Date of Service Jul 27, 2016 Subjective Patient states that his NG tube feels uncomfortable. However, it has relieved some of his abdominal discomfort already discharged within a few hours after placement of the NG tube. He has no other new complaints. Exam Vital Signs Vital Sign - Last Date Time Temp Pulse Resp B/P Pulse Ox O2 Delivery O2 Flow Rate FiO2 07/27/16 20:31 36.8 66 20 123/75 93 Room Air Intake and Output 07/26/16 07/26/16 07/27/16 Cumulative From/Thru 15:00 23:00 07:00 07/26/16 19:36 - 07/27/16 05:52 Intake Total 500 ml 756 ml 1256 ml Output Total 375 ml 375 ml Balance 500 ml 381 ml 881 ml Intake Oral 200 ml 200 ml IV Total 500 ml 556 ml 1056 ml Output Urine Total 375 ml 375 ml Exam General: Patient is in no apparent distress lying supine in bed with head elevated approximate 45 with NG tube in. HEENT: Head is atraumatic and normocephalic. Eyes: Pupils are equally round and reactive to light and accommodation. Extraocular muscles are intact. Sclera are white, anicteric. Subconjunctival mucosa is pink. Nose: There is an NG tube in place site is unremarkable. Ears are unremarkable. Oropharynx: There is no mucosal lesions, there is no thrush, there is no pharyngitis. Neck: Is supple, there are no nodes, or masses or tenderness. Chest: Is clear to auscultation and percussion. There are no rales, rhonchi, wheezes or rubs. Heart: Rate, rhythm is regular. There is no murmur, rub or gallop. Abdomen: There are a few bowel sounds present. Abdomen is distended with tympany to percussion the abdomen is otherwise nontender, with no organomegaly or masses appreciated. Extremities: Are symmetrical and well perfused. There is no minimal edema, there is no cellulitis, no rash. Neurologic: There are no focal neurological deficits. Cranial nerves II through XII are intact. There are no sensory or motor deficits. Psychiatric: Patients mood is calm and shows no sign of agitation. Genital: Deferred Rectal: Deferred Lab and Diagnostics Result Diagram: 07/27/1643907/27/16439 X-Rays, CTs and MRIs CT ABDOMEN AND PELVIS WITH CONTRAST 07/26 INDICATIONS: 66 year-old male with abdominal distention. TECHNIQUE: After the administration of intravenous contrast, 5 mm thick sections acquired from the diaphragm to the symphysis. 5 mm coronal and sagittal reformats were acquired. For radiation dose reduction, the following was used: automated exposure control, adjustment of mA and/or kV according to patient size. COMPARISON: [facility], CT, ABD/PELVIS W&WO CON (PNL), 11/30/2011, 9 :46. FINDINGS: Image quality: Excellent. ABDOMEN: Lung bases: There is patchy posterior right lung base atelectasis, and more confluent posterior left lung base airspace opacity with internal air bronchograms. There is mild cardiomegaly status post pacemaker placement and median sternotomy. There is bilateral gynecomastia. Solid organs: Liver and spleen are normal in size. 3.2 cm caudate lobe hepatic simple cyst is present. Gallbladder is surgically absent. Biliary system is non dilated. Pancreas enhances normally. No adrenal nodules. Kidneys demonstrate normal size, without hydronephrosis. 3.3 cm inferior left renal cortical exophytic simple cyst is again noted. Previously noted medial right renal exophytic hyperdense cyst has decreased in size, reassuring for benignity. Peritoneum and bowel: There is mild distention of multiple small bowel loops, with transition point noted in the right lower quadrant on axial image 73. Distal small bowel loops appear decompressed. Colon appears normal in overall caliber. Bowel wall thickness appears normal throughout. No free fluid or air. Nodes and vessels: No retroperitoneal or mesenteric adenopathy by size criteria. Aorta and inferior vena cava are normal in size, with moderate aortoiliac atherosclerosis. Miscellaneous: No ventral hernias. PELVIS: Genitourinary: Bladder wall thickness is normal. The prostate gland is normal in overall size. Miscellaneous: No inguinal hernias or adenopathy. Bones: No suspicious bony lesions. No vertebral body compression fractures. There is mid and lower lumbar spine disc degeneration. IMPRESSION: 1. Evolving mid small bowel obstruction with transition point in the right lower quadrant. In the absence of any associated hernias or mass lesions, obstruction is presumably secondary to adhesions. No findings to suggest bowel ischemia. 2. Posterior left lung base confluent atelectasis versus pneumonia. 3. Cardiomegaly hepatic simple cyst again noted, as well as inferior left renal cortical exophytic simple cyst. Previously noted hemorrhagic or proteinaceous hyperdense cyst arising from the medial right kidney has decreased in size. Dictated by: Louie Isaac M.D. on 07/26/2016 at 21:29 Approved by: Louie Isaac M.D. on 07/26/2016 at 21:41 Assessment & Plan Abdulkadir Mccain is a 66 year old male with Hypertension, Aortic Valve replacement and Chronic A fib and recent diagnosis of left rib fracture presenting to the emergency department complaining of worsening pain associated with shortness of breath. Found to have a bowel obstruction. 1. Acute Small bowel obstruction. Present on admission Likely secondary to constipation exacerbated by opioids used due to recent rib fracture. He has no extensive abdominal surgery to suggest adhesive disease. - continue conservative approach as patient is not a ideal surgical candidate unless it is a emergency procedure. - nothing by mouth - IV fluids - antinausea medications, consider NG tube placement if symptoms worsens - laxative regimen - Surgical consultation have been requested 2. Chronic Atrial fibrillation on anticoagulation INR >4, supra therapeutic. I do not feel the patient has any ischemic heart disease issues at this point - monitor on telemetry - continue Amiodarone and Carvedilol - holding Coumadin for now, if surgery is planned then transition to Heparin drip 4 Chronic pain syndrome on narcotic recent left rib fracture after a fall. - counseled patient on taking a daily laxative due to his daily narcotic medications 5 Aortic Valve replacement - currently on anticoagulations 6. Hypertension - continue Lisinopril - Acetaminophen as needed for mild pain/fever/headache - Bowel regimen as needed - Antiemetic as needed Disposition will depend on time for small bowel obstruction to improve. . Pain Evaluation: Adequate Pain Control GI Prophylaxis: Proton Pump Inhibitor VTE Prophylaxis: Theraputic Anticoag with Warfarin VTE Mechanical Devices: Intermittant Pneumatic CD Resuscitation Status: CPR: Attempt Resuscitation Jose Renee MD Jul 27, 2016 22:52
--- NOTE | 2016-07-28 04:14 | NUR ---
NG Discomfort/ BM Pt. reports throat discomfort. Pt. states "I don't know how much longer I can take of this". Pt. reports discomfort of tube in back of throat. This RN explained to pt. that this is normal, and gave words of encouragement to pt. Pt. has had several liquid stools this shift. Will continue to monitor.
[2016-07-28 04:31] VITALS: BP 146/80; PULSE 66; RESP 22; O2SAT 94
[2016-07-28] MEDS: 0.9% Sodium Chloride 1,000 ML IV SCH ×2 (05:00→14:44)
--- NOTE | 2016-07-28 07:28 | PCM.PNSURG ---
Subjective Visit Information: Reason for Visit Bowel Obstruction Surgery/Surgery Date Post-Op Day # Date of Admission: Jul 26, 2016 at 22:44 Hospital Day # Subjective: Gastrografin administered yesterday. 4 hour Xray at 7pm did not show progress of GG, but the pt had several BMs overnight (4 are recorded during day shift and 4 overnight). He does not like the NG tube. 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 Labs pending. UOP 600mL. He feels less distended than prior, but still moderately so, and tympanic. Objective Vital Sign- Last 8 Hours Date Time Temp Pulse Resp B/P Pulse Ox O2 Delivery O2 Flow Rate FiO2 07/28/16 04:31 36.4 66 22 146/80 94 Room Air Intake and Output- Last 8 Hour 07/28/16 Cumulative From/Thru 07:00 07/26/16 19:36 - 07/28/16 06:38 Intake Total 1223 ml 3618 ml Output Total 2200 ml 3975 ml Balance -977 ml -357 ml Intake Oral 0 ml 200 ml IV Total 1223 ml 3418 ml Output Urine Total 600 ml 1625 ml Stool Total 650 ml 650 ml Gastric Drainage Total 950 ml 1700 ml # Voids 4 4 # Bowel Movements 4 8 General: Alert, Oriented X3, Cooperative, No Acute Distress Abdomen: Soft, Distended, Tympanic Result Diagram: 07/27/16 0440 07/27/16 0440 Assessment & Plan Impression 66yom with SBO, slowly improving Problems: Plan He is still distended, tympanic, nearly 1L out NG overnight. I therefore recommend continuation of NG today despite BMs he has had. I will f/u on 24h XR. If he continues similar progress, I may recommend NG discontinuation as soon as tomorrow morning. VTE Prophylaxis: Theraputic Anticoag with Warfarin Resuscitation Status: CPR: Attempt Resuscitation Carey Godinez MD Jul 28, 2016 07:28
[2016-07-28] MEDS: HYDROcodone-APAP 10-325 mg PO PRN ×3 (08:26→22:55)
[2016-07-28] MEDS: Pantoprazole 4 mg/mL 10 mL Inj IVPUSH SCH (08:27)
[2016-07-28 09:05] LABS: BASOPHILS % (AUTO) 0.1 % (0-3); EOSINOPHILS % (AUTO) 1.7 % (0-5); MONOCYTES % (AUTO) 14.2 % (4-12); Mean Corpuscular Hemoglobin 29.4 pg (27.0-35.0); Mean Corpuscular Volume 89.2 fL (81-100); NEUTROPHILS % (AUTO) 74.4 % (40-74); Platelet Count 159 bil/L (150-400)
[2016-07-28 09:18] LABS: INR 3.27 ratio
[2016-07-28 09:24] VITALS: BP 134/75; PULSE 67; RESP 19; O2SAT 95
[2016-07-28 09:27] LABS: Magnesium 1.7 mg/dL (1.6-2.6)
[2016-07-28] MEDS ORDERED: Benzocaine (Hurricaine) 20% Unit-Dose Spray MUC_MEMBRM PRN (10:30)
--- NOTE | 2016-07-28 13:47 | DRSVH ---
PROCEDURE: X-RAY ABDOMEN, ONE VIEW ([id number]) INDICATIONS: gastrographin challenge TECHNIQUE: One view of the abdomen acquired. COMPARISON: [facility], CT, CT ABD PELVIS W CON, 07/26/2016, 21:16. [facility], [facility], XR GASTROGRAF CHALLENG 1VW ABD, 07/27/2016, 17:01. FINDINGS: Surgical changes and devices: None. Bowel: Multilevel dilated loops of small bowel are redemonstrated throughout the midabdomen. Contrast is likely present within the sigmoid colon and the rectosigmoid region. Soft tissues: No suspicious abdominal calcifications. Visualized solid organ contours appear normal in size. Bones: No suspicious bony lesions. IMPRESSION: 1. Persistent dilated loops of small bowel throughout the mid abdomen with probable contrast within the sigmoid colon and rectosigmoid region. These findings favor ileus over obstruction; however opaci fication of the sigmoid is faint and these findings are somewhat equivocal. If further characterizati on is warranted, CT of the pelvis to evaluate for distal colonic contrast may be helpful. Dictated by: Juliette Ngo M.D. on 07/28/2016 at 13:40 Approved by: Juliette Ngo M.D. on 07/28/2016 at 13:46
[2016-07-28 15:16] VITALS: BP 162/84; PULSE 63; RESP 20; O2SAT 96
[2016-07-28] MEDS ORDERED: Magnesium Sulf 4 Gm/100 mL H2O 4 GM in IV Premix 1 EACH IV ONE (17:10)
--- NOTE | 2016-07-28 17:14 | NUR ---
Rib Pain patient has been complaining of left side rib pain from previous rib fractures. However, the NG tube has been irritating the back of patient's throat and causing a mild irritable cough. the cough has been exacerbating the rib pain. patient's tried PO miguel medication, Hurricaine spray, ice to ribs, and pillow splinting. Hurricaine spray was "more irritating", per patient report. ice and pillow splint was working before the cough started this afternoon, and pain medication has been somewhat effective. Patient has walked in [facility] twice on day shift, one lab around unit each time. patient tolerated well. continue with plan of care.
--- NOTE | 2016-07-28 17:30 | PCM.PNMED ---
Subjective Date of Service Jul 28, 2016 Subjective Patient states that he hardly got any sleep last night. He states he only got a few hours sleep due to discomfort from the nasogastric tube irritating his posterior pharynx and throat. Patient otherwise is feeling a little bit better his abdomen is not quite as distended. Patient has no other new complaints. Exam Vital Signs Vital Sign - Last Date Time Temp Pulse Resp B/P Pulse Ox O2 Delivery O2 Flow Rate FiO2 07/28/16 15:16 36.3 63 20 162/84 96 Room Air Intake and Output 07/27/16 07/27/16 07/28/16 Cumulative From/Thru 15:00 23:00 07:00 07/26/16 19:36 - 07/28/16 06:38 Intake Total 1139 ml 1223 ml 3618 ml Output Total 1400 ml 2200 ml 3975 ml Balance -261 ml -977 ml -357 ml Intake Oral 0 ml 0 ml 200 ml IV Total 1139 ml 1223 ml 3418 ml Output Urine Total 650 ml 600 ml 1625 ml Stool Total 650 ml 650 ml Gastric Drainage Total 750 ml 950 ml 1700 ml # Voids 4 4 # Bowel Movements 4 4 8 Exam General: Patient is in no apparent distress lying supine in bed with head elevated approximate 45 with NG tube in. HEENT: Head is atraumatic and normocephalic. Eyes: Pupils are equally round and reactive to light and accommodation. Extraocular muscles are intact. Sclera are white, anicteric. Subconjunctival mucosa is pink. Nose: There is an NG tube in place site is unremarkable. Ears are unremarkable. Oropharynx: There is no mucosal lesions, there is no thrush, there is no pharyngitis. Neck: Is supple, there are no nodes, or masses or tenderness. Chest: Is clear to auscultation and percussion. There are no rales, rhonchi, wheezes or rubs. Heart: Rate, rhythm is regular. There is no new murmur, rub or gallop. Abdomen: There are a few bowel sounds present. Abdomen is slightly less distended today. Still with tympany to percussion the abdomen, which is otherwise nontender, with no organomegaly or masses appreciated. Extremities: Are symmetrical and well perfused. There is no minimal edema, there is no cellulitis, no rash. Neurologic: There are no focal neurological deficits. Cranial nerves II through XII are intact. There are no sensory or motor deficits. Psychiatric: Patients mood is calm and he shows no sign of agitation. Genital: Deferred Rectal: Deferred Lab and Diagnostics Result Diagram: 07/28/1684307/28/16843 X-Rays, CTs and MRIs CT ABDOMEN AND PELVIS WITH CONTRAST 07/26 INDICATIONS: 66 year-old male with abdominal distention. TECHNIQUE: After the administration of intravenous contrast, 5 mm thick sections acquired from the diaphragm to the symphysis. 5 mm coronal and sagittal reformats were acquired. For radiation dose reduction, the following was used: automated exposure control, adjustment of mA and/or kV according to patient size. COMPARISON: [facility], CT, ABD/PELVIS W&WO CON (PNL), 11/30/2011, 9 :46. FINDINGS: Image quality: Excellent. ABDOMEN: Lung bases: There is patchy posterior right lung base atelectasis, and more confluent posterior left lung base airspace opacity with internal air bronchograms. There is mild cardiomegaly status post pacemaker placement and median sternotomy. There is bilateral gynecomastia. Solid organs: Liver and spleen are normal in size. 3.2 cm caudate lobe hepatic simple cyst is present. Gallbladder is surgically absent. Biliary system is non dilated. Pancreas enhances normally. No adrenal nodules. Kidneys demonstrate normal size, without hydronephrosis. 3.3 cm inferior left renal cortical exophytic simple cyst is again noted. Previously noted medial right renal exophytic hyperdense cyst has decreased in size, reassuring for benignity. Peritoneum and bowel: There is mild distention of multiple small bowel loops, with transition point noted in the right lower quadrant on axial image 73. Distal small bowel loops appear decompressed. Colon appears normal in overall caliber. Bowel wall thickness appears normal throughout. No free fluid or air. Nodes and vessels: No retroperitoneal or mesenteric adenopathy by size criteria. Aorta and inferior vena cava are normal in size, with moderate aortoiliac atherosclerosis. Miscellaneous: No ventral hernias. PELVIS: Genitourinary: Bladder wall thickness is normal. The prostate gland is normal in overall size. Miscellaneous: No inguinal hernias or adenopathy. Bones: No suspicious bony lesions. No vertebral body compression fractures. There is mid and lower lumbar spine disc degeneration. IMPRESSION: 1. Evolving mid small bowel obstruction with transition point in the right lower quadrant. In the absence of any associated hernias or mass lesions, obstruction is presumably secondary to adhesions. No findings to suggest bowel ischemia. 2. Posterior left lung base confluent atelectasis versus pneumonia. 3. Cardiomegaly hepatic simple cyst again noted, as well as inferior left renal cortical exophytic simple cyst. Previously noted hemorrhagic or proteinaceous hyperdense cyst arising from the medial right kidney has decreased in size. Dictated by: Louie Isaac M.D. on 07/26/2016 at 21:29 Approved by: Louie Isaac M.D. on 07/26/2016 at 21:41 PROCEDURE: X-RAY ABDOMEN, ONE VIEW ([id number]) INDICATIONS: gastrographin challenge TECHNIQUE: One view of the abdomen acquired. COMPARISON: [facility], CT, CT ABD PELVIS W CON, 07/26/2016, 21:16. [facility], CR, XR GASTROGRAF CHALLENG 1VW ABD, 07/27/2016, 17:01. FINDINGS: Surgical changes and devices: None. Bowel: Multilevel dilated loops of small bowel are redemonstrated throughout the midabdomen. Contrast is likely present within the sigmoid colon and the rectosigmoid region. Soft tissues: No suspicious abdominal calcifications. Visualized solid organ contours appear normal in size. Bones: No suspicious bony lesions. IMPRESSION: 1. Persistent dilated loops of small bowel throughout the mid abdomen with probable contrast within the sigmoid colon and rectosigmoid region. These findings favor ileus over obstruction; however opacification of the sigmoid is faint and these findings are somewhat equivocal. If further characterization is warranted, CT of the pelvis to evaluate for distal colonic contrast may be helpful. Dictated by: Juliette Ngo M.D. on 07/28/2016 at 13:40 Approved by: Juliette Ngo M.D. on 07/28/2016 at 13:46 Assessment & Plan Abdulkadir Mccain is a 66 year old male with Hypertension, Aortic Valve replacement and Chronic A fib and recent diagnosis of left rib fracture presenting to the emergency department complaining of worsening pain associated with shortness of breath. Found to have a bowel obstruction. # Acute Small bowel obstruction versus ileus. Present on admission Likely secondary to constipation exacerbated by opioids used due to recent rib fracture. He has no extensive abdominal surgery to suggest adhesive disease. - We will continue conservative approach as patient is not a ideal surgical candidate unless it is a emergency procedure. - We will continue NG tube suction - Continue on nothing by mouth - We will change IV fluids to D5 half-normal with 20 mg KCl due to patient being on no PO intake and hypokalemia - We will continue antinausea medications - Surgical consultation and continuation of care appreciated. # Chronic Atrial fibrillation on anticoagulation INR >4, supra therapeutic. I do not feel the patient has any ischemic heart disease issues at this point - Continue to monitor on telemetry - We will continue Amiodarone and Carvedilol - Continue holding Coumadin for now, if surgery is planned then transition to Heparin drip # Chronic pain syndrome on narcotic recent left rib fracture after a fall. - The patient was counseled patient on taking a daily laxative due to his daily narcotic medications # Aortic Valve replacement - Continue anticoagulations per pharmacy # Hypertension - We will continue Lisinopril # Hypokalemia likely due to NG tube suction - Monitor and correct as needed # Hypomagnesemia likely due to NG tube suction _ Monitor and correct as needed - Acetaminophen as needed for mild pain/fever/headache - Bowel regimen as needed - Antiemetic as needed Disposition will depend on time for small bowel obstruction/ileus to improve. . Pain Evaluation: Adequate Pain Control GI Prophylaxis: Proton Pump Inhibitor VTE Prophylaxis: Theraputic Anticoag with Warfarin VTE Mechanical Devices: Intermittant Pneumatic CD Resuscitation Status: CPR: Attempt Resuscitation Jose Renee MD Jul 28, 2016 17:30
[2016-07-28] MEDS: D5 0.45% NaCl + KCl 20 mEq/L 1,000 ML IV SCH (17:50)
[2016-07-28 19:50] VITALS: BP 123/63; PULSE 60; RESP 20; O2SAT 93
[2016-07-28] MEDS: Benzocaine-Menthol Lozenge 2/Pkg PO PRN (21:55)
--- NOTE | 2016-07-28 22:23 | NUR ---
paged about sore throat Pt. reported no relief of sore throat with hurrican spray. Herbert FRANCSI paged. ordered throat lozenges for pt. Zofran IV was also given, as pt. became a little nauseous with coughing. Will continue to monitor.
[2016-07-29 04:53] VITALS: BP 113/70; PULSE 62; RESP 16; O2SAT 92
[2016-07-29 05:48] LABS: BASOPHILS % (AUTO) 0.2 % (0-3); EOSINOPHILS % (AUTO) 1.8 % (0-5); MONOCYTES % (AUTO) 15.5 % (4-12); Mean Corpuscular Hemoglobin 29.3 pg (27.0-35.0); Mean Corpuscular Volume 89.4 fL (81-100); NEUTROPHILS % (AUTO) 73.7 % (40-74); Platelet Count 192 bil/L (150-400)
[2016-07-29 05:59] LABS: INR 3.47 ratio
[2016-07-29 06:10] LABS: Magnesium 2.3 mg/dL (1.6-2.6)
[2016-07-29] MEDS: D5 0.45% NaCl + KCl 20 mEq/L 1,000 ML IV SCH ×2 (06:12→17:55)
[2016-07-29] MEDS: HYDROcodone-APAP 10-325 mg PO PRN ×3 (06:16→17:44)
--- NOTE | 2016-07-29 07:24 | PCM.PHAPRO ---
Progress Date of Service: Jul 29, 2016 ANTICOAGULATION MANAGEMENT BY PHARMACY -INDICATION: AFIB,AVR -HOME DOSE: 5 mg MoWeFr, 7.5 mg other days -CONCURRENT ANTICOAGULATION: NONE -CRCL: 170 ML/MIN -COAG TRENDS: -Jul 28-Jul 29-Jul 4.42 3.27 3.47 0.12 -1.15 0.2 hold 2.5 HOLD -[id number] SCORE: 2 PLAN: WILL HOLD WARFARIN TONIGHT INR IS SUPRATHERAPEUTIC. Pharmacy appreciates consult and will continue to monitor. THANKS! Arti Lara PharmD Jul 29, 2016 07:24
[2016-07-29] MEDS: Pantoprazole 4 mg/mL 10 mL Inj IVPUSH SCH (08:15)
--- NOTE | 2016-07-29 08:55 | PCM.PNSURG ---
Subjective Visit Information: Reason for Visit Bowel Obstruction Surgery/Surgery Date Post-Op Day # Date of Admission: Jul 26, 2016 at 22:44 Hospital Day # Subjective: 4 additional BMs and contrast moved into the rectosigmoid on XR yesterday. Distension is improving. No abdominal pain. Labs/vitals normal. NG with thin gastric secretions, 450mL in the last 12h. Objective Vital Sign- Last 8 Hours Date Time Temp Pulse Resp B/P Pulse Ox O2 Delivery O2 Flow Rate FiO2 07/29/16 04:53 36.3 62 16 113/70 92 Room Air Intake and Output- Last 8 Hour 07/29/16 Cumulative From/Thru 07:00 07/26/16 19:36 - 07/29/16 04:59 Intake Total 1025 ml 5756 ml Output Total 1050 ml 6725 ml Balance -25 ml -969 ml Intake Oral 0 ml 200 ml IV Total 1025 ml 5556 ml Output Urine Total 600 ml 2925 ml Stool Total 950 ml Gastric Drainage Total 450 ml 2850 ml # Voids 4 # Bowel Movements 0 8 Abdomen: Soft, Non-tender, Other (mild distension and tympany, improved compared to yesterday.) Result Diagram: 07/29/16 0510 07/29/16 0510 Assessment & Plan Impression SBO, resolving Problems: Plan OK to discontinue NG tube given improvement in bowel function. I asked him to call RN early if he develops nausea, in which case NG may need to be re-inserted or antiemetics administered. Please keep him NPO until tomorrow as XR shows some bowel distension yesterday and he is still mildly distended. VTE Prophylaxis: Theraputic Anticoag with Warfarin Resuscitation Status: CPR: Attempt Resuscitation Carey Godinez MD Jul 29, 2016 08:55
--- NOTE | 2016-07-29 10:42 | NUR ---
LORIE signed. Kia Day [employer]UST[employer] TRAINING SPECIALIST
--- NOTE | 2016-07-29 10:43 | NUR ---
Social Work: Readiness for Discharge Data: EMR Reviewed. Pt is on day 3 of hospitalization for a bowel obstruction per H&P. Anticipate patient may discharge in the next few days. Per Surgery, pt to have NG tube removed today and advance diet tomorrow. Per nursing notes, pt has been up independent in his room. No PT needs indicated. SW followed up with pt and at bedside. SW role explained. SW confirmed plan of home at discharge, no needs. SW updated plan on board, provided phone number. Pt's to provide transportation home at discharge. No discharge needs identified. SW will continue to follow if needs arise. Assessment: Pt who is independent at baseline. Plan: Pt to discharge home with to transport via POV. No discharge needs identified at this time. SW will continue to follow if needs arise. TORY Garvey
[2016-07-29 13:00] VITALS: BP 102/71; PULSE 68; RESP 18; O2SAT 93
--- NOTE | 2016-07-29 15:31 | PCM.PNMED ---
Subjective Date of Service Jul 29, 2016 Subjective Patient seen and examined at bedside. Medical record reviewed. Plan of care discussed surgery Dr. Godinez and nursing staff Patient is getting somewhat better. NG tube section with approximately 300 mL of gastric content overnight. No nausea no vomiting. No fever no chills. No abdominal pain. Patient passing some gas but no bowel movement. Exam Vital Signs Vital Sign - Last Date Time Temp Pulse Resp B/P Pulse Ox O2 Delivery O2 Flow Rate FiO2 07/29/16 13:00 36.7 68 18 102/71 93 Room Air Intake and Output 07/28/16 07/28/16 07/29/16 Cumulative From/Thru 14:59 22:59 06:59 07/26/16 19:36 - 07/29/16 04:59 Intake Total 1113 ml 1025 ml 5756 ml Output Total 1700 ml 1050 ml 6725 ml Balance -587 ml -25 ml -969 ml Intake Oral 0 ml 200 ml IV Total 1113 ml 1025 ml 5556 ml Output Urine Total 700 ml 600 ml 2925 ml Stool Total 300 ml 950 ml Gastric Drainage Total 700 ml 450 ml 2850 ml # Voids 4 # Bowel Movements 0 8 Exam General: Well-nourished male, in bed comfortably no distress. Neck: Supple no JVD, no carotid breath, trip and midline Chest: Normal respiratory effort Abdomen: Distended nontender bowel sounds hypoactive. Heart: S1-S2 irregular rate and rhythm, no gallop Extremities: No edema , no calf tenderness, no cyanosis Neurological: Grossly nonfocal IVs and Medications Medications Reviewed: Medications were reviewed in detail Lab and Diagnostics Result Diagram: 07/29/16 0510 07/29/16 0510 X-Rays, CTs and MRIs CT ABDOMEN AND PELVIS WITH CONTRAST 07/26 INDICATIONS: 66 year-old male with abdominal distention. TECHNIQUE: After the administration of intravenous contrast, 5 mm thick sections acquired from the diaphragm to the symphysis. 5 mm coronal and sagittal reformats were acquired. For radiation dose reduction, the following was used: automated exposure control, adjustment of mA and/or kV according to patient size. COMPARISON: [facility], CT, ABD/PELVIS W&WO CON (PNL), 11/30/2011, 9 :46. FINDINGS: Image quality: Excellent. ABDOMEN: Lung bases: There is patchy posterior right lung base atelectasis, and more confluent posterior left lung base airspace opacity with internal air bronchograms. There is mild cardiomegaly status post pacemaker placement and median sternotomy. There is bilateral gynecomastia. Solid organs: Liver and spleen are normal in size. 3.2 cm caudate lobe hepatic simple cyst is present. Gallbladder is surgically absent. Biliary system is non dilated. Pancreas enhances normally. No adrenal nodules. Kidneys demonstrate normal size, without hydronephrosis. 3.3 cm inferior left renal cortical exophytic simple cyst is again noted. Previously noted medial right renal exophytic hyperdense cyst has decreased in size, reassuring for benignity. Peritoneum and bowel: There is mild distention of multiple small bowel loops, with transition point noted in the right lower quadrant on axial image 73. Distal small bowel loops appear decompressed. Colon appears normal in overall caliber. Bowel wall thickness appears normal throughout. No free fluid or air. Nodes and vessels: No retroperitoneal or mesenteric adenopathy by size criteria. Aorta and inferior vena cava are normal in size, with moderate aortoiliac atherosclerosis. Miscellaneous: No ventral hernias. PELVIS: Genitourinary: Bladder wall thickness is normal. The prostate gland is normal in overall size. Miscellaneous: No inguinal hernias or adenopathy. Bones: No suspicious bony lesions. No vertebral body compression fractures. There is mid and lower lumbar spine disc degeneration. IMPRESSION: 1. Evolving mid small bowel obstruction with transition point in the right lower quadrant. In the absence of any associated hernias or mass lesions, obstruction is presumably secondary to adhesions. No findings to suggest bowel ischemia. 2. Posterior left lung base confluent atelectasis versus pneumonia. 3. Cardiomegaly hepatic simple cyst again noted, as well as inferior left renal cortical exophytic simple cyst. Previously noted hemorrhagic or proteinaceous hyperdense cyst arising from the medial right kidney has decreased in size. Dictated by: Louie Isaac M.D. on 07/26/2016 at 21:29 Approved by: Louie Isaac M.D. on 07/26/2016 at 21:41 PROCEDURE: X-RAY ABDOMEN, ONE VIEW ([id number]) INDICATIONS: gastrographin challenge TECHNIQUE: One view of the abdomen acquired. COMPARISON: [facility], CT, CT ABD PELVIS W CON, 07/26/2016, 21:16. [facility], CR, XR GASTROGRAF CHALLENG 1VW ABD, 07/27/2016, 17:01. FINDINGS: Surgical changes and devices: None. Bowel: Multilevel dilated loops of small bowel are redemonstrated throughout the midabdomen. Contrast is likely present within the sigmoid colon and the rectosigmoid region. Soft tissues: No suspicious abdominal calcifications. Visualized solid organ contours appear normal in size. Bones: No suspicious bony lesions. IMPRESSION: 1. Persistent dilated loops of small bowel throughout the mid abdomen with probable contrast within the sigmoid colon and rectosigmoid region. These findings favor ileus over obstruction; however opacification of the sigmoid is faint and these findings are somewhat equivocal. If further characterization is warranted, CT of the pelvis to evaluate for distal colonic contrast may be helpful. Dictated by: Juliette Ngo M.D. on 07/28/2016 at 13:40 Approved by: Juliette Ngo M.D. on 07/28/2016 at 13:46 Assessment & Plan Abdulkadir Mccain is a 66 year old male with Hypertension, Aortic Valve replacement and Chronic A fib and recent diagnosis of left rib fracture presenting to the emergency department complaining of worsening pain associated with shortness of breath. Found to have a bowel obstruction. # Acute Small bowel obstruction versus ileus. Present on admission. -. Somewhat better today. Abdomen is still distended nontender. - Discuss with surgery Dr. Godinez, NG tube to be discontinued at this time but patient would be kept nothing by mouth for the next 24 hours. - Repeat abdominal x-ray in the morning and was dictated from there. - Continue IV hydration, antiemetics and continued to insert NG tube for nausea and vomiting recurred # Chronic Atrial fibrillation on anticoagulation Heart rate is under control. INR within therapeutic level. Goal is 2.5 to prevent 3.5 given concomitant mechanical aortic valve # Chronic pain syndrome on narcotic recent left rib fracture after a fall. - The patient was counseled patient on taking a daily laxative due to his daily narcotic medications # Aortic Valve replacement - Continue anticoagulations per pharmacy # Hypertension - On Lisinopril # Hypokalemia likely due to NG tube suction - Monitor and replace electrolytes when necessary # Hypomagnesemia likely due to NG tube suction _ Monitor and correct as needed - Acetaminophen as needed for mild pain/fever/headache - Bowel regimen as needed - Antiemetic as needed Patient is somewhat better today clinically. NG tube is discontinued. Monitor and consider start liquid diet as of tomorrow. Plan after discussing the surgery Dr. Godinez. GI Prophylaxis: Proton Pump Inhibitor VTE Prophylaxis: Theraputic Anticoag with Warfarin VTE Mechanical Devices: Intermittant Pneumatic CD Resuscitation Status: CPR: Attempt Resuscitation Madi Llanos MD Jul 29, 2016 15:31
--- NOTE | 2016-07-29 18:48 | NUR ---
Pain/NG Pt's pain well controlled during shift with PO medication. Pt only has increased pain with coughing and is using pillow for splinting. NG tube removed this AM at 1020. Pt has not been able to have BM during shift and abdomen is still hard and distended. Pt has remained NPO other than medications. Pt able to be up and walking in hallways w/o difficulty.
[2016-07-29 19:30] VITALS: BP 123/71; PULSE 65; RESP 17; O2SAT 94
[2016-07-30 05:31] LABS: BASOPHILS % (AUTO) 0.3 % (0-3); EOSINOPHILS % (AUTO) 6.3 % (0-5); MONOCYTES % (AUTO) 15.6 % (4-12); Mean Corpuscular Hemoglobin 29.3 pg (27.0-35.0); Mean Corpuscular Volume 91.1 fL (81-100); NEUTROPHILS % (AUTO) 62.4 % (40-74); Platelet Count 197 bil/L (150-400)
[2016-07-30 05:41] LABS: INR 3.83 ratio
[2016-07-30 06:32] VITALS: BP 120/70; PULSE 68; RESP 18; O2SAT 94
[2016-07-30] MEDS: D5 0.45% NaCl + KCl 20 mEq/L 1,000 ML IV SCH ×2 (06:42→19:15)
--- NOTE | 2016-07-30 07:11 | PCM.PHAPRO ---
Progress Warfarin Management: -will hold warfarin dose this evening as inr is supratherapeutic at 3.83 [facility] Jul 30, 2016 07:11
--- NOTE | 2016-07-30 07:20 | NUR ---
Abdominal Distension Patient stated he felt like he may be becoming more distended this morning. No nausea, vomiting. Patient was placed on 2L O2 while sleeping, 96%. Patient sat's dropped to High 80's on room air while sleeping.
[2016-07-30] MEDS: Pantoprazole 4 mg/mL 10 mL Inj IVPUSH SCH (08:20)
--- NOTE | 2016-07-30 09:40 | DRSVH ---
PROCEDURE: X-RAY ABDOMEN, ONE VIEW ([id number]) INDICATIONS: obstruction TECHNIQUE: One view of the abdomen acquired. COMPARISON: [facility], CR, XR ABD AP 1VW, 07/28/2016, 13:03. [facility], CR , XR GASTROGRAF CHALLENG 1VW ABD, 07/27/2016, 17:01. FINDINGS: Surgical changes and devices: Pacer leads incompletely visualized. Bowel: Persistent mild gaseous distention of both small and large bowel throughout the upper abdomen and residual contrast media seen within the sigmoid and rectum. No pneumatosis or bowel wall thicken ing. Soft tissues: No suspicious abdominal calcifications. Visualized solid organ contours appear normal in size. Bones: No suspicious bony lesions. IMPRESSION: Mild gaseous distention of both small and large bowel present suggesting paralytic ileus but differential consideration would also include partial small bowel obstruction. Clinical correlat ion and if indicated followup exam. Dictated by: Hans LEE Interpreted: Cash Vinson MD on 07/30/2016 at 9:37 Transcribed by: OBED on 07/30/2016 at 9:39 Approved by: Cash Vinson M.D. on 07/30/2016 at 11:03
--- NOTE | 2016-07-30 14:16 | NUR ---
NUTRITION ASSESSMENT Assess: 66 YO M admitted for bowel obstruction vs ileus. Pt has been NPO X 4 days. PMHX: Chronic pain, aortic valve replacement, thoracic aneurysm repair. DIET: NPO. LABS: Glu 103, T. bili 1.3 MEDICATIONS: Reviewed. Colace. GI: 4 BM 07/28. Abd. distention. SKIN: No issues noted. WEIGHT: 112.5 kg, BMI 31.0 kg/m2, Admit wt: 111.4 kg. ESTIMATED NEEDS: BMI Calories: 0214-9700 kcal/day (20-22 kcal/kg BW) Protein: 107-134 g/day (1.2-1.5 g/kg IBW) NUTRITION DIAGNOSIS: 1) Inadequate oral intake related to decreased ability to consume sufficient energy as evidenced by NPO status. INTERVENTION: 1) Will await timely advancement of diet, if unable to advance diet in the next 48 hours recommend nutrition support. MONITOR/EVALUATE: NPO status, labs, GI, diet advance vs nutrition support, nutrition status. Follow per high nutrition risk guidelines.
[2016-07-30 14:44] VITALS: BP 139/81; PULSE 69; RESP 16; O2SAT 97
--- NOTE | 2016-07-30 15:39 | PROG NOTE ---
[address] [address] PROGRESS NOTE PATIENT: CAN ACKERMAN : 1950 MR#: [id number] ADMIT: 07/26/2016 JOB ID: [id number] DATE: 07/30/2016 The patient is seen in followup for his recent admission for abdominal distention. Over the weekend, Gastrografin study showed that the contrast had transited to his colon. However, dilated loops of small bowel remain, suggesting this may indeed be an ileus rather than small bowel obstruction. NG tube was removed yesterday. He has had no significant nausea overnight. However, this morning, he does report some abdominal distention. He has remained afebrile and hemodynamically normal. This morning, he is alert and oriented and comfortable. His abdomen is soft but is clearly distended. It is nontender. His white blood cell count remains normal at 5.8. His hematocrit is stable at 40.1. His creatinine is 0.83. Plain film of the abdomen is obtained today. This shows mildly dilated loops of small bowel and colon. Redness suggestive of a paralytic ileus. ASSESSMENT AND PLAN: This is a 66-year-old man admitted with abdominal distention and discomfort with radiographic findings suggestive of an ileus. I agree with the radiographic findings that this more likely represents an ileus rather than small bowel obstruction. At this point, investigation as to possible etiologies of paralytic ileus can be undertaken. At this point, do not anticipate any kind of need for surgical intervention.
--- NOTE | 2016-07-30 16:03 | PCM.PNMED ---
Subjective Date of Service Jul 30, 2016 Subjective Follow-up for bowel obstruction versus ileus. Patient seen and examined at bedside. He is off NG tube suction since yesterday but today his abdomen is somewhat more distended. No nausea no vomiting No bowel movement in the past 24 hours, but has been passing gas. No chest pain, no shortness of breath Exam Vital Signs Vital Sign - Last Date Time Temp Pulse Resp B/P Pulse Ox O2 Delivery O2 Flow Rate FiO2 07/30/16 14:44 36.3 69 16 139/81 97 Room Air Intake and Output 07/29/16 07/29/16 07/30/16 Cumulative From/Thru 15:00 23:00 07:00 07/26/16 19:36 - 07/30/16 06:30 Intake Total 1093 ml 350 ml 7199 ml Output Total 6725 ml Balance 1093 ml 350 ml 474 ml Intake Oral 200 ml 350 ml 750 ml IV Total 893 ml 6449 ml Output Urine Total 2925 ml Stool Total 950 ml Gastric Drainage Total 2850 ml # Voids 3 7 # Bowel Movements 0 0 8 Exam General: Zach regulated by 3. No acute distress. He looks somewhat uncomfortable Neck: Supple no JVD, no carotid breath Chest: Normal respiratory effort, no chest wall tenderness. Lungs: Clear bilaterally, call, no wheezing Abdomen: Distended , nontender , bowel sounds hypoactive. No palpable mass Heart: S1-S2 irregular rate and rhythm, no gallop Extremities: No edema , no calf tenderness, no cyanosis Neurological: AAOX3 . Grossly intact IVs and Medications Medications Reviewed: Medications were reviewed in detail Lab and Diagnostics Result Diagram: 07/30/16 0500 07/30/16 0500 X-Rays, CTs and MRIs CT ABDOMEN AND PELVIS WITH CONTRAST 07/26 INDICATIONS: 66 year-old male with abdominal distention. TECHNIQUE: After the administration of intravenous contrast, 5 mm thick sections acquired from the diaphragm to the symphysis. 5 mm coronal and sagittal reformats were acquired. For radiation dose reduction, the following was used: automated exposure control, adjustment of mA and/or kV according to patient size. COMPARISON: [facility], CT, ABD/PELVIS W&WO CON (PNL), 11/30/2011, 9 :46. FINDINGS: Image quality: Excellent. ABDOMEN: Lung bases: There is patchy posterior right lung base atelectasis, and more confluent posterior left lung base airspace opacity with internal air bronchograms. There is mild cardiomegaly status post pacemaker placement and median sternotomy. There is bilateral gynecomastia. Solid organs: Liver and spleen are normal in size. 3.2 cm caudate lobe hepatic simple cyst is present. Gallbladder is surgically absent. Biliary system is non dilated. Pancreas enhances normally. No adrenal nodules. Kidneys demonstrate normal size, without hydronephrosis. 3.3 cm inferior left renal cortical exophytic simple cyst is again noted. Previously noted medial right renal exophytic hyperdense cyst has decreased in size, reassuring for benignity. Peritoneum and bowel: There is mild distention of multiple small bowel loops, with transition point noted in the right lower quadrant on axial image 73. Distal small bowel loops appear decompressed. Colon appears normal in overall caliber. Bowel wall thickness appears normal throughout. No free fluid or air. Nodes and vessels: No retroperitoneal or mesenteric adenopathy by size criteria. Aorta and inferior vena cava are normal in size, with moderate aortoiliac atherosclerosis. Miscellaneous: No ventral hernias. PELVIS: Genitourinary: Bladder wall thickness is normal. The prostate gland is normal in overall size. Miscellaneous: No inguinal hernias or adenopathy. Bones: No suspicious bony lesions. No vertebral body compression fractures. There is mid and lower lumbar spine disc degeneration. IMPRESSION: 1. Evolving mid small bowel obstruction with transition point in the right lower quadrant. In the absence of any associated hernias or mass lesions, obstruction is presumably secondary to adhesions. No findings to suggest bowel ischemia. 2. Posterior left lung base confluent atelectasis versus pneumonia. 3. Cardiomegaly hepatic simple cyst again noted, as well as inferior left renal cortical exophytic simple cyst. Previously noted hemorrhagic or proteinaceous hyperdense cyst arising from the medial right kidney has decreased in size. Dictated by: Louie Isaac M.D. on 07/26/2016 at 21:29 Approved by: Louie Isaac M.D. on 07/26/2016 at 21:41 PROCEDURE: X-RAY ABDOMEN, ONE VIEW ([id number]) INDICATIONS: gastrographin challenge TECHNIQUE: One view of the abdomen acquired. COMPARISON: [facility], CT, CT ABD PELVIS W CON, 07/26/2016, 21:16. [facility], CR, XR GASTROGRAF CHALLENG 1VW ABD, 07/27/2016, 17:01. FINDINGS: Surgical changes and devices: None. Bowel: Multilevel dilated loops of small bowel are redemonstrated throughout the midabdomen. Contrast is likely present within the sigmoid colon and the rectosigmoid region. Soft tissues: No suspicious abdominal calcifications. Visualized solid organ contours appear normal in size. Bones: No suspicious bony lesions. IMPRESSION: 1. Persistent dilated loops of small bowel throughout the mid abdomen with probable contrast within the sigmoid colon and rectosigmoid region. These findings favor ileus over obstruction; however opacification of the sigmoid is faint and these findings are somewhat equivocal. If further characterization is warranted, CT of the pelvis to evaluate for distal colonic contrast may be helpful. Dictated by: Juliette Ngo M.D. on 07/28/2016 at 13:40 Approved by: Juliette Ngo M.D. on 07/28/2016 at 13:46 Assessment & Plan Abdulkadir Mccain is a 66 year old male with Hypertension, Aortic Valve replacement and Chronic A fib and recent diagnosis of left rib fracture presenting to the emergency department complaining of worsening pain associated with shortness of breath. Found to have a bowel obstruction. # Acute Small bowel obstruction versus ileus. Present on admission. NG tube removed yesterday, today his abdomen is more distended though he denied nausea, no vomiting. Repeat abdominal x-ray showed dilated lower lobe compatible with a use rather than obstruction. Because of previous in this patient it is not clear. His electrolytes are within normal limits including magnesium, calcium, potassium. I would quit down on narcotics, hydrocodone 10 mg orally every 6 hours 5 mg orally every 8 hours. - Continue IV hydration, antiemetics and continued to insert NG tube for nausea and vomiting recurred. Out of bed encouraged Surgery follow-up and accommodation noted # Chronic Atrial fibrillation on anticoagulation Heart rate is under control. INR within therapeutic level. Goal is 2.5 to prevent 3.5 given concomitant mechanical aortic valve # Chronic pain syndrome on narcotic recent left rib fracture after a fall. - The patient was counseled patient on taking a daily laxative due to his daily narcotic medications. Need to cut down discuss given presence of obstruction # Aortic Valve replacement - Continue anticoagulations per pharmacy # Hypertension - On Lisinopril # Hypokalemia likely due to NG tube suction - Monitor and replace electrolytes when necessary # Hypomagnesemia likely due to NG tube suction _ Monitor and correct as needed - Acetaminophen as needed for mild pain/fever/headache - Bowel regimen as needed - Antiemetic as needed Patient continue with abdominal distention and ileus confirmed by x-ray of the abdomen today. Patient does not want to start NG tube again. Continue with conservative management. Surgery following CBC, BMP in a.m. Pain Evaluation: Adequate Pain Control GI Prophylaxis: Proton Pump Inhibitor VTE Prophylaxis: Theraputic Anticoag with Warfarin VTE Mechanical Devices: Intermittant Pneumatic CD Resuscitation Status: CPR: Attempt Resuscitation Madi Llanos MD Jul 30, 2016 16:03
--- NOTE | 2016-07-30 19:05 | NUR ---
GI/mobility patient has a small BM this am, smear. active bowel tones and passing flatus. reports feeling a "little bloated" abdomen was tight on palpation first thing this morning, became softer as day progressed. patient has been up walking halls x 3 today, several laps around the unit each time up. continue to monitor.
[2016-07-30 19:30] VITALS: BP 132/79; PULSE 86; RESP 19; O2SAT 94
[2016-07-30] MEDS: HYDROcodone-APAP 5-325 mg Tablet PO PRN (21:56)
[2016-07-31 05:33] LABS: BASOPHILS % (AUTO) 0.2 % (0-3); MONOCYTES % (AUTO) 15.7 % (4-12); Mean Corpuscular Hemoglobin 29.1 pg (27.0-35.0); NEUTROPHILS % (AUTO) 68.8 % (40-74); Platelet Count 211 bil/L (150-400)
[2016-07-31 05:40] LABS: INR 4.05 ratio
[2016-07-31 05:49] LABS: Magnesium 1.8 mg/dL (1.6-2.6)
[2016-07-31 06:17] VITALS: BP 134/72; PULSE 68; RESP 18; O2SAT 92
--- NOTE | 2016-07-31 06:55 | PCM.PHAPRO ---
Progress Warfarin Management: -inr remains supratherapeutic today at 4.05 and will hold the dose this evening Neris Yang [facility] Jul 31, 2016 06:55
[2016-07-31] MEDS: D5 0.45% NaCl + KCl 20 mEq/L 1,000 ML IV SCH ×2 (07:34→20:10)
--- NOTE | 2016-07-31 07:36 | NUR ---
Ambulation Patient up twice this shift for multiple laps around floor. Patient tolerated ambulation well. Steady on feet. Patient. Patient 93% on room air. A&Ox3. Patient NPO except for ice chips and sips with medications.
[2016-07-31 08:45] VITALS: BP 148/80; PULSE 64; RESP 10; O2SAT 94
--- NOTE | 2016-07-31 09:00 | NUR ---
LORIE signed. TORY Orellana
[2016-07-31] MEDS: Pantoprazole 4 mg/mL 10 mL Inj IVPUSH SCH (09:33)
--- NOTE | 2016-07-31 13:20 | NUR ---
PO intake P: Pt was grumbling and complaining about being NPO for the past week. I: Progressed diet to clear liquids, and daughter came to visit. E: Pt is in noticeably better spirits, not grumbling. Talking and joking more with family members and staff.
[2016-07-31 13:36] VITALS: BP 120/74; PULSE 61; O2SAT 92
--- NOTE | 2016-07-31 14:11 | PCM.PNMED ---
Subjective Date of Service Jul 31, 2016 Subjective Patient seen and examined at bedside. His abdomen remained distended today but improved. He had 2 small bowel movement overnight and has been passing gas as well. He denied any nausea, no vomiting, no abdominal pain. No fever no chills, no chest pain or shortness of breath Exam Vital Signs Vital Sign - Last Date Time Temp Pulse Resp B/P Pulse Ox O2 Delivery O2 Flow Rate FiO2 07/31/16 13:36 36.4 61 120/74 92 Room Air 07/31/16 08:45 10 Intake and Output 07/30/16 07/30/16 07/31/16 Cumulative From/Thru 15:00 23:00 07:00 07/26/16 19:36 - 07/31/16 06:16 Intake Total 1001 ml 1270 ml 150 ml 9620 ml Output Total 200 ml 350 ml 7275 ml Balance 1001 ml 1070 ml -200 ml 2345 ml Intake Oral 400 ml 150 ml 1300 ml IV Total 1001 ml 870 ml 8320 ml Output Urine Total 200 ml 350 ml 3475 ml Stool Total 950 ml Gastric Drainage Total 2850 ml # Voids 3 10 # Bowel Movements 1 0 9 Exam General: Sitting in bed comfortably , no distress. Neck: Supple no JVD, no carotid breath, Chest: Normal respiratory effort, no chest wall tenderness Abdomen: Distended but soft, non tender . bowel sounds audible all quadrant. Heart: S1-S2 , irregular rate and rhythm, no gallop, no murmur Extremities: No edema , no calf tenderness, no cyanosis Neurological: AAO x 3. Grossly intact Lab and Diagnostics Result Diagram: 07/31/167 07/31/16 043 X-Rays, CTs and MRIs CT ABDOMEN AND PELVIS WITH CONTRAST 07/26 INDICATIONS: 66 year-old male with abdominal distention. TECHNIQUE: After the administration of intravenous contrast, 5 mm thick sections acquired from the diaphragm to the symphysis. 5 mm coronal and sagittal reformats were acquired. For radiation dose reduction, the following was used: automated exposure control, adjustment of mA and/or kV according to patient size. COMPARISON: [facility], CT, ABD/PELVIS W&WO CON (PNL), 11/30/2011, 9 :46. FINDINGS: Image quality: Excellent. ABDOMEN: Lung bases: There is patchy posterior right lung base atelectasis, and more confluent posterior left lung base airspace opacity with internal air bronchograms. There is mild cardiomegaly status post pacemaker placement and median sternotomy. There is bilateral gynecomastia. Solid organs: Liver and spleen are normal in size. 3.2 cm caudate lobe hepatic simple cyst is present. Gallbladder is surgically absent. Biliary system is non dilated. Pancreas enhances normally. No adrenal nodules. Kidneys demonstrate normal size, without hydronephrosis. 3.3 cm inferior left renal cortical exophytic simple cyst is again noted. Previously noted medial right renal exophytic hyperdense cyst has decreased in size, reassuring for benignity. Peritoneum and bowel: There is mild distention of multiple small bowel loops, with transition point noted in the right lower quadrant on axial image 73. Distal small bowel loops appear decompressed. Colon appears normal in overall caliber. Bowel wall thickness appears normal throughout. No free fluid or air. Nodes and vessels: No retroperitoneal or mesenteric adenopathy by size criteria. Aorta and inferior vena cava are normal in size, with moderate aortoiliac atherosclerosis. Miscellaneous: No ventral hernias. PELVIS: Genitourinary: Bladder wall thickness is normal. The prostate gland is normal in overall size. Miscellaneous: No inguinal hernias or adenopathy. Bones: No suspicious bony lesions. No vertebral body compression fractures. There is mid and lower lumbar spine disc degeneration. IMPRESSION: 1. Evolving mid small bowel obstruction with transition point in the right lower quadrant. In the absence of any associated hernias or mass lesions, obstruction is presumably secondary to adhesions. No findings to suggest bowel ischemia. 2. Posterior left lung base confluent atelectasis versus pneumonia. 3. Cardiomegaly hepatic simple cyst again noted, as well as inferior left renal cortical exophytic simple cyst. Previously noted hemorrhagic or proteinaceous hyperdense cyst arising from the medial right kidney has decreased in size. Dictated by: Louie Isaac M.D. on 07/26/2016 at 21:29 Approved by: Louie Isaac M.D. on 07/26/2016 at 21:41 PROCEDURE: X-RAY ABDOMEN, ONE VIEW ([id number]) INDICATIONS: gastrographin challenge TECHNIQUE: One view of the abdomen acquired. COMPARISON: [facility], CT, CT ABD PELVIS W CON, 07/26/2016, 21:16. [facility], CR, XR GASTROGRAF CHALLENG 1VW ABD, 07/27/2016, 17:01. FINDINGS: Surgical changes and devices: None. Bowel: Multilevel dilated loops of small bowel are redemonstrated throughout the midabdomen. Contrast is likely present within the sigmoid colon and the rectosigmoid region. Soft tissues: No suspicious abdominal calcifications. Visualized solid organ contours appear normal in size. Bones: No suspicious bony lesions. IMPRESSION: 1. Persistent dilated loops of small bowel throughout the mid abdomen with probable contrast within the sigmoid colon and rectosigmoid region. These findings favor ileus over obstruction; however opacification of the sigmoid is faint and these findings are somewhat equivocal. If further characterization is warranted, CT of the pelvis to evaluate for distal colonic contrast may be helpful. Dictated by: Juliette Ngo M.D. on 07/28/2016 at 13:40 Approved by: Juliette Ngo M.D. on 07/28/2016 at 13:46 Assessment & Plan Abdulkadir Mccain is a 66 year old male with Hypertension, Aortic Valve replacement and Chronic A fib and recent diagnosis of left rib fracture presenting to the emergency department complaining of worsening pain associated with shortness of breath. Found to have a bowel obstruction. # Acute Small bowel obstruction versus ileus. Present on admission. Abdomen is soft still distended but quite less today. Patient has bowel movement overnight and has been passing gas. Surgery agree , will restart clear liquid diet today. Limited use of narcotic discussed with patient. Out of bed encouraged hydrocodone cut down to 5 mg orally every 8 hours. Surgery follow-up # Chronic Atrial fibrillation on anticoagulation Heart rate is under control. INR within therapeutic level. Goal is 2.5 to prevent 3.5 given concomitant mechanical aortic valve # Chronic pain syndrome on narcotic recent left rib fracture after a fall. - The patient was counseled patient on taking a daily laxative due to his daily narcotic medications. -Oxycodone could down from 10-5 mg. So far tolerating # Aortic Valve replacement - Continue anticoagulations per pharmacy # Hypertension - On Lisinopril # Hypokalemia and hypomagnesemia: Monitor electrolytes and replace when necessary - Acetaminophen as needed for mild pain/fever/headache - Antiemetic as needed Patient continue with abdominal distention or improved. He had 2 bowel movement overnight Continue with conservative management. Clear liquid diet restarted today if surgery agrees CBC, BMP in a.m. Pain Evaluation: Adequate Pain Control GI Prophylaxis: Proton Pump Inhibitor VTE Prophylaxis: Theraputic Anticoag with Warfarin VTE Mechanical Devices: Intermittant Pneumatic CD Resuscitation Status: CPR: Attempt Resuscitation Time spent 25 minutes Madi Llanos MD Jul 31, 2016 14:11
--- NOTE | 2016-07-31 16:38 | PROG NOTE ---
[address] [address] PROGRESS NOTE PATIENT: CAN ACKERMAN : 1950 MR#: [id number] ADMIT: 07/26/2016 JOB ID: [id number] DATE: 07/31/2016 SUBJECTIVE: The patient is seen for followup for his admission for ileus. He has done okay over the last 24 hours without the NG tube. This morning he was advanced to a clear liquid diet. He has been passing some flatus and liquid bowel movements. He has remained afebrile. Hemodynamically normal. He is alert and oriented. His belly remains a little bit distended but is otherwise nontender. Labs were reviewed and essentially unremarkable with a persistently normal white count. ASSESSMENT AND PLAN: This is a 66-year-old man who was admitted with what appears to be a paralytic ileus which is resolving. At this point, there is no indication that this is small bowel obstruction or would require any kind of operative intervention. I am going to sign off. Please feel free to call me if there are any questions. I would recommend, if he continues to have diarrhea, checking C difficile.
[2016-07-31 16:45] VITALS: BP 132/71; PULSE 63; RESP 17; O2SAT 94
--- NOTE | 2016-07-31 19:31 | NUR ---
Pain/ambulation Patient up indep with in hallway walking multiple rounds. Pt with increased pain towards evening and finally asked for Tylenol for pain. Patient is hesitant to take narcotics as bowel obstruction/ileus resolving .
[2016-07-31] MEDS: Benzocaine-Menthol Lozenge 2/Pkg PO PRN (20:08)
[2016-07-31 20:17] VITALS: BP 131/68; PULSE 65; RESP 21; O2SAT 96
--- NOTE | 2016-07-31 21:00 | NUR ---
Cough Pt has a bronchospastic cough. Difficult for him to breathe while coughing. Painful left ribs due to hx of fracture. Reported significantly diminshed breath sounds and cough to MD Cxray ordered for the AM Cough suppressant ordered for this evening PRN Pt does splint his left side which eases his pain. VS stable. Care ongoing
[2016-07-31] MEDS: HYDROcodone-APAP 5-325 mg Tablet PO PRN (21:07)
[2016-08-01] MEDS: D5 0.45% NaCl + KCl 20 mEq/L 1,000 ML IV SCH ×2 (03:55→20:21)
--- NOTE | 2016-08-01 04:37 | NUR ---
GI Pt had moderate very loose stool. Dk brown in color.
[2016-08-01 05:01] VITALS: BP 158/85; PULSE 65; RESP 17; O2SAT 96
[2016-08-01 06:28] LABS: BASOPHILS % (AUTO) 0.2 % (0-3); INR 3.54 ratio; MONOCYTES % (AUTO) 14.1 % (4-12); Mean Corpuscular Hemoglobin 28.8 pg (27.0-35.0); Mean Corpuscular Volume 89.9 fL (81-100); NEUTROPHILS % (AUTO) 64.7 % (40-74); Platelet Count 215 bil/L (150-400)
[2016-08-01 06:29] LABS: Magnesium 1.7 mg/dL (1.6-2.6)
--- NOTE | 2016-08-01 07:11 | PCM.PHAPRO ---
Progress Warfarin Management by Pharmacy: -Indication: afib with concomitant mechanical aortic valve -Home Dose: warfarin 5mg MoWeFr and 7.5mg all other days -Inr Goal: 2.5-3.5 -Drug Interactions: home amiodarone dose -Coagulation Trends: Jul 27-Jul 28-Jul 29-Jul 30-Jul 14-Jul 15-Jul 4.3 4.42 3.27 3.47 3.83 4.05 3.54 0.12 -1.15 0.2 0.36 0.22 -0.51 UNK hold 2.5 2.5 HOLD HOLD Plan: will restart warfarin at 2.5mg this evening as Inr has dropped to the high end of normal. Neris Yang [facility] Aug 01, 2016 07:11
[2016-08-01] MEDS ORDERED: Potassium Chloride Inj 20 MEQ in Dextrose 5% 250 ML IV ONE ×2 (07:25→18:05)
[2016-08-01 08:07] VITALS: BP 142/84; PULSE 61; O2SAT 94
[2016-08-01] MEDS: Pantoprazole 4 mg/mL 10 mL Inj IVPUSH SCH (08:46)
--- NOTE | 2016-08-01 11:15 | NUR ---
Social Work- Readiness for Discharge Data: EMR reviewed. Pt is on day 6 of hospitalization for bowel obstruction per H&P. Pt is not medically stable for discharge, anticipate 1-2 more days. SW met with pt at bedside to confirm discharge plan. Per nursing notes, pt is ambulating independently in the [facility]. working on advancing pt's diet. Pt to return home with at discharge, to transport via POV. No anticipated discharge needs. SW continues to follow. Assessment: Pt who is independent at baseline. Plan: Anticipate pt to discharge in 1-2 more days. Pt to return home with at discharge, to transport via POV. No anticipated discharge needs. SW continues to follow. TORY Garvey
--- NOTE | 2016-08-01 12:47 | NUR ---
Case Management: CALERO given and explained to daughter in law Catie at 11:50. Teresa DICKENS RN
--- NOTE | 2016-08-01 13:36 | DRSVH ---
PROCEDURE: X-RAY CHEST, TWO VIEWS ([id number]) INDICATIONS: INCREASE COUGH TECHNIQUE: 2 views of the chest were acquired. COMPARISON: [facility], CR, XR ABD AP 1VW, 07/30/2016, 9:18. [facility], CR, CHEST 2VW, 04/20/2009, 7:31. FINDINGS: Surgical changes and devices: Post median sternotomy. Stable position left chest AICD. Lungs and pleura: Bibasilar air space opacities otherwise lungs are clear. Mediastinum: Mediastinal contours are normal. Heart size is enlarged Bones and chest wall: No suspicious bony abnormalities. Soft tissues appear unremarkable. Of note, gaseous distention of bowel again noted within the upper abdomen. IMPRESSION: Bibasilar atelectasis versus aspiration or pneumonia. Correlate clinically. Dictated by: Hans LEE Interpreted: Juliette Ngo MD on 08/01/2016 at 13:34 Transcribed by: ALOK on 08/01/2016 at 13:36 Approved by: Juliette Ngo M.D. on 08/01/2016 at 15:43
[2016-08-01 13:49] VITALS: BP 108/66; PULSE 67; O2SAT 94
--- NOTE | 2016-08-01 14:03 | NUR ---
C. DIFF NEGATIVE P: Dr ordered test for C. diff after pt had more liquid stools over night. I: Stool sample was gathered, contact precautions were posted, and pt was notified. E: Test came back negative for C. diff, patient was relieved with results. Precautions were removed.
[2016-08-01] MEDS: HYDROcodone-APAP 5-325 mg Tablet PO PRN ×2 (14:39→22:33)
--- NOTE | 2016-08-01 15:06 | NUR ---
Case Management: Please disregard CALERO documentation. Teresa DICKENS RN
--- NOTE | 2016-08-01 15:07 | NUR ---
NUTRITION FOLLOW-UP: Assess: 66 YO male admitted for bowel obstruction vs ileus which is resolving. Pt was able to have his NG tube removed yesterday and pt diet was advanced to clear liquids which pt tolerated well. Diet has been advanced to full liquids today with pt eating 100% of meals. PMHX: Chronic pain, aortic valve replacement, thoracic aneurysm repair. DIET: Full Liquids. PO intake 100%. LABS: Reviewed. K+ 3.2, Alb 3.4. MEDICATIONS: Reviewed. GI: BM x 1 (08/01) WEIGHT: 113.7 kg, Admit wt: 111.4 kg. ESTIMATED NEEDS: BMI Calories: 6590-9144 kcal/day (20-22 kcal/kg BW) Protein: 107-134 g/day (1.2-1.5 g/kg IBW) NUTRITION DIAGNOSIS: 1.) Inadequate oral intake related to decreased ability to consume sufficient energy as evidenced by NPO x 5 days--IMPROVING, DIET ADVANCING WITH GOOD PO INTAKE/TOLERANCE. INTERVENTION: 1.) Continue to advance diet as tolerated per MD recommendations. MONITOR/EVALUATE: PO intake, labs, GI, and nutrition status. Follow per moderate nutrition risk guidelines.
--- NOTE | 2016-08-01 15:25 | PCM.PNMED ---
Subjective Date of Service Aug 01, 2016 Subjective Follow-up follow illeus Patient seen and examined at bedside. He has multiple watery bowel movements overnight. No abdominal pain nausea vomiting. His abdomen is less distended today No fever, no chills Exam Vital Signs Vital Sign - Last Date Time Temp Pulse Resp B/P Pulse Ox O2 Delivery O2 Flow Rate FiO2 08/01/16 13:49 36.5 67 108/66 94 Room Air 08/01/16 05:01 17 Intake and Output 07/31/16 07/31/16 08/01/16 Cumulative From/Thru 15:00 23:00 07:00 07/26/16 19:36 - 08/01/16 06:10 Intake Total 680 ml 1680 ml 30760 ml Output Total 900 ml 950 ml 9125 ml Balance -220 ml 730 ml 2855 ml Intake Oral 680 ml 1100 ml 3080 ml IV Total 580 ml 8900 ml Output Urine Total 900 ml 950 ml 5325 ml Stool Total 950 ml Gastric Drainage Total 2850 ml # Voids 1 11 # Bowel Movements 1 1 11 Exam Neck: Supple, no JVD Chest: Normal respiratory effort Plan: Clear bilaterally, no crackle ,no wheezing Heart, S1-S2 irregular Abdomen: Distended, non tender, soft. No palpable mass. Bowel sounds normal. Extremity: No edema: No cyanosis tenderness IVs and Medications Medications Reviewed: Medications were reviewed in detail Lab and Diagnostics Result Diagram: 08/01/1651408/01/1615 X-Rays, CTs and MRIs CT ABDOMEN AND PELVIS WITH CONTRAST 07/26 INDICATIONS: 66 year-old male with abdominal distention. TECHNIQUE: After the administration of intravenous contrast, 5 mm thick sections acquired from the diaphragm to the symphysis. 5 mm coronal and sagittal reformats were acquired. For radiation dose reduction, the following was used: automated exposure control, adjustment of mA and/or kV according to patient size. COMPARISON: [facility], CT, ABD/PELVIS W&WO CON (PNL), 11/30/2011, 9 :46. FINDINGS: Image quality: Excellent. ABDOMEN: Lung bases: There is patchy posterior right lung base atelectasis, and more confluent posterior left lung base airspace opacity with internal air bronchograms. There is mild cardiomegaly status post pacemaker placement and median sternotomy. There is bilateral gynecomastia. Solid organs: Liver and spleen are normal in size. 3.2 cm caudate lobe hepatic simple cyst is present. Gallbladder is surgically absent. Biliary system is non dilated. Pancreas enhances normally. No adrenal nodules. Kidneys demonstrate normal size, without hydronephrosis. 3.3 cm inferior left renal cortical exophytic simple cyst is again noted. Previously noted medial right renal exophytic hyperdense cyst has decreased in size, reassuring for benignity. Peritoneum and bowel: There is mild distention of multiple small bowel loops, with transition point noted in the right lower quadrant on axial image 73. Distal small bowel loops appear decompressed. Colon appears normal in overall caliber. Bowel wall thickness appears normal throughout. No free fluid or air. Nodes and vessels: No retroperitoneal or mesenteric adenopathy by size criteria. Aorta and inferior vena cava are normal in size, with moderate aortoiliac atherosclerosis. Miscellaneous: No ventral hernias. PELVIS: Genitourinary: Bladder wall thickness is normal. The prostate gland is normal in overall size. Miscellaneous: No inguinal hernias or adenopathy. Bones: No suspicious bony lesions. No vertebral body compression fractures. There is mid and lower lumbar spine disc degeneration. IMPRESSION: 1. Evolving mid small bowel obstruction with transition point in the right lower quadrant. In the absence of any associated hernias or mass lesions, obstruction is presumably secondary to adhesions. No findings to suggest bowel ischemia. 2. Posterior left lung base confluent atelectasis versus pneumonia. 3. Cardiomegaly hepatic simple cyst again noted, as well as inferior left renal cortical exophytic simple cyst. Previously noted hemorrhagic or proteinaceous hyperdense cyst arising from the medial right kidney has decreased in size. Dictated by: Louie Isaac M.D. on 07/26/2016 at 21:29 Approved by: Louie Isaac M.D. on 07/26/2016 at 21:41 PROCEDURE: X-RAY ABDOMEN, ONE VIEW ([id number]) INDICATIONS: gastrographin challenge TECHNIQUE: One view of the abdomen acquired. COMPARISON: [facility], CT, CT ABD PELVIS W CON, 07/26/2016, 21:16. [facility], CR, XR GASTROGRAF CHALLENG 1VW ABD, 07/27/2016, 17:01. FINDINGS: Surgical changes and devices: None. Bowel: Multilevel dilated loops of small bowel are redemonstrated throughout the midabdomen. Contrast is likely present within the sigmoid colon and the rectosigmoid region. Soft tissues: No suspicious abdominal calcifications. Visualized solid organ contours appear normal in size. Bones: No suspicious bony lesions. IMPRESSION: 1. Persistent dilated loops of small bowel throughout the mid abdomen with probable contrast within the sigmoid colon and rectosigmoid region. These findings favor ileus over obstruction; however opacification of the sigmoid is faint and these findings are somewhat equivocal. If further characterization is warranted, CT of the pelvis to evaluate for distal colonic contrast may be helpful. Dictated by: Juliette Ngo M.D. on 07/28/2016 at 13:40 Approved by: Juliette Ngo M.D. on 07/28/2016 at 13:46 Assessment & Plan Abdulkadir Mccain is a 66 year old male with Hypertension, Aortic Valve replacement and Chronic A fib and recent diagnosis of left rib fracture presenting to the emergency department complaining of worsening pain associated with shortness of breath. Found to have a bowel obstruction. # Acute Small bowel obstruction versus ileus. Present on admission. Ileus is improving. Patient has multiple bowel movement overnight, and his bili is quite distended today. Change diet from clear liquid to full liquid diet. This tolerated we will move to regular diet for dinner. # Chronic Atrial fibrillation on anticoagulation Heart rate is under control. INR within therapeutic level. # Chronic pain syndrome on narcotic recent left rib fracture after a fall. -Cutdown and narcotics # Aortic Valve replacement - Continue anticoagulations per pharmacy # Hypertension ; controlled - On Lisinopril # Hypokalemia and hypomagnesemia: Monitor electrolytes and replace when necessary - Acetaminophen as needed for mild pain/fever/headache - Antiemetic as needed patient doing quite better today. No nausea, vomiting, abdominal distention improved. Ileus resolving. Diet is being upgraded. Discharge anticipated for tomorrow if you continue to improve GI Prophylaxis: Proton Pump Inhibitor VTE Prophylaxis: Theraputic Anticoag with Warfarin VTE Mechanical Devices: Intermittant Pneumatic CD Resuscitation Status: CPR: Attempt Resuscitation Time spent 25 minutes Madi Llanos MD Aug 01, 2016 15:25
[2016-08-01 16:54] VITALS: BP 121/83; PULSE 64; RESP 18; O2SAT 94
[2016-08-01] MEDS ORDERED: Furosemide 10 mg/mL 10 mL Inj IVPUSH ONE (18:05)
--- NOTE | 2016-08-01 18:16 | NUR ---
Abdomen Patient remains with lg round abdomen that is soft to touch when assessed. Patient with lower ext edema noted . Patient having small amounts loose stool tested neg for C Diff. Pt up ambulating hallway . No nausea or emesis noted .
[2016-08-01 20:26] VITALS: BP 117/71; PULSE 63; RESP 17; O2SAT 92
[2016-08-02 06:24] LABS: INR 6.62 ratio
[2016-08-02 06:32] VITALS: BP 148/80; PULSE 68; RESP 17; O2SAT 94
[2016-08-02] MEDS: HYDROcodone-APAP 5-325 mg Tablet PO PRN (06:45)
[2016-08-02] MEDS: Pantoprazole 4 mg/mL 10 mL Inj IVPUSH SCH (06:46)
--- NOTE | 2016-08-02 07:14 | NUR ---
Pain Patient c/o pain throughout shift, partially in fault of diuretic dose requiring frequent trips to restroom. Pain medications, and cough suppressants were requested early each time. Tolerated ambulation well. CP and SOB directly related to injury. A&O able to make needs known.
[2016-08-02] MEDS ORDERED: Potassium Chloride Inj 20 MEQ in Dextrose 5% 250 ML IV ONE (07:20)
[2016-08-02 07:55] LABS: INR 3.02 ratio
[2016-08-02 08:56] VITALS: BP 136/75; PULSE 62; O2SAT 92
--- NOTE | 2016-08-02 09:13 | PCM.DIMED ---
Discharge Instructions Date of Service Aug 02, 2016 Dates of Hospitalization Jul 26, 2016 at 22:44 Discharge Diagnosis Discharge Diagnosis Ileus , SBO, s/p Aortic valve replacement , Atrial Fibrillation , Anticoagulated , Hypertension , Hypokalemia , LE edema Diet Low fat, Low Sodium Activity No restrictions Call your provider Vomitting (N) Patient Instructions Follow with primary Care doctor in one week to arrange for colonoscopy BMP in 3 days to monitor potassium level with PCP Follow-up with PCP in: 1 week (Primary Care doctor ) Madi Llanos MD Aug 02, 2016 09:13
[2016-08-02] MEDS ORDERED: HYDR-4003 PO (09:15)
[2016-08-02] MEDS: D5 0.45% NaCl + KCl 20 mEq/L 1,000 ML IV SCH (09:40)
--- NOTE | 2016-08-02 12:06 | PCM.PHAPRO ---
Progress Warfarin Management: -Indication: afib with concomitant mechanical aortic valve -Home Dose: warfarin 5mg MoWeFr and 7.5mg all other days -Inr Goal: 2.5-3.5 -Drug Interactions: home amiodarone dose -Coagulation Trends: Jul 27-Jul 28-Jul 29-Jul 30-Jul 14-Jul 15-Jul 16-Jul 4.3 4.42 3.27 3.47 3.83 4.05 3.54 6.62 0.12 -1.15 0.2 0.36 0.22 -0.51 3.08 UNK hold 2.5 2.5 HOLD HOLD 2.5mg 3mg -Plan: had lab repeat Inr this morning as a supratherapeutic level of 6.62 was reported. New value returned an inr of 3.02 will give pt warfarin 3mg this evening Neris Yang [facility] Aug 02, 2016 12:06
--- NOTE | 2016-08-02 12:45 | NUR ---
Social Work Discharge: Order for discharge acknowledged. Plan is home with . Patient independent with needs No anticipated discharge needs at this time. SW will continue to follow. PLAN: Home with . No anticipated discharge needs at this time. Lidia SPEARS
[2016-08-02 13:20] VITALS: BP 102/58; PULSE 92; RESP 18; O2SAT 93
--- NOTE | 2016-08-02 15:03 | NUR ---
DISCHARGE Patient's diet was upgraded to general. Tolerated breakfast and lunch without any complications. Denied nausea or abd cramping. Patient also had a 'more normal' BM today after breakfast. Ambulated around hallway with SBA with steady gait. Reviewed discharge paperwork with patient and at bedside. Patient acknowledged new change to pain medications. Given scripts for pain medication and cough medicine. Peripheral IV was d/c'd by SN, catheter intact. Patient left with all personal belongings. Taken outside in wheelchair to personal vehicle.
--- NOTE | 2016-08-02 17:45 | PCM.DC.MED ---
Discharge Summary Date of Service Aug 02, 2016 Dates of Hospitalization Date of Hospital Admission Jul 26, 2016 at 22:44 Date of Discharge: Aug 02, 2016 Providers: Admitting Physician: Thor Cintron MD Primary Care Physician: Teddy Patiño MD Attending Physician: Thor Cintron MD Diagnosis at Time of Discharge Diagnosis at Time of Discharge Ileus , SBO, s/p Aortic valve replacement , Atrial Fibrillation , Anticoagulated , Hypertension , Hypokalemia , LE edema Consultations General surgery Procedures XRay, CTs & MRIs CT ABDOMEN AND PELVIS WITH CONTRAST 07/26 INDICATIONS: 66 year-old male with abdominal distention. TECHNIQUE: After the administration of intravenous contrast, 5 mm thick sections acquired from the diaphragm to the symphysis. 5 mm coronal and sagittal reformats were acquired. For radiation dose reduction, the following was used: automated exposure control, adjustment of mA and/or kV according to patient size. COMPARISON: [facility], CT, ABD/PELVIS W&WO CON (PNL), 11/30/2011, 9 :46. FINDINGS: Image quality: Excellent. ABDOMEN: Lung bases: There is patchy posterior right lung base atelectasis, and more confluent posterior left lung base airspace opacity with internal air bronchograms. There is mild cardiomegaly status post pacemaker placement and median sternotomy. There is bilateral gynecomastia. Solid organs: Liver and spleen are normal in size. 3.2 cm caudate lobe hepatic simple cyst is present. Gallbladder is surgically absent. Biliary system is non dilated. Pancreas enhances normally. No adrenal nodules. Kidneys demonstrate normal size, without hydronephrosis. 3.3 cm inferior left renal cortical exophytic simple cyst is again noted. Previously noted medial right renal exophytic hyperdense cyst has decreased in size, reassuring for benignity. Peritoneum and bowel: There is mild distention of multiple small bowel loops, with transition point noted in the right lower quadrant on axial image 73. Distal small bowel loops appear decompressed. Colon appears normal in overall caliber. Bowel wall thickness appears normal throughout. No free fluid or air. Nodes and vessels: No retroperitoneal or mesenteric adenopathy by size criteria. Aorta and inferior vena cava are normal in size, with moderate aortoiliac atherosclerosis. Miscellaneous: No ventral hernias. PELVIS: Genitourinary: Bladder wall thickness is normal. The prostate gland is normal in overall size. Miscellaneous: No inguinal hernias or adenopathy. Bones: No suspicious bony lesions. No vertebral body compression fractures. There is mid and lower lumbar spine disc degeneration. IMPRESSION: 1. Evolving mid small bowel obstruction with transition point in the right lower quadrant. In the absence of any associated hernias or mass lesions, obstruction is presumably secondary to adhesions. No findings to suggest bowel ischemia. 2. Posterior left lung base confluent atelectasis versus pneumonia. 3. Cardiomegaly hepatic simple cyst again noted, as well as inferior left renal cortical exophytic simple cyst. Previously noted hemorrhagic or proteinaceous hyperdense cyst arising from the medial right kidney has decreased in size. Dictated by: Louie Isaac M.D. on 07/26/2016 at 21:29 Approved by: Louie Isaac M.D. on 07/26/2016 at 21:41 PROCEDURE: X-RAY ABDOMEN, ONE VIEW ([id number]) INDICATIONS: gastrographin challenge TECHNIQUE: One view of the abdomen acquired. COMPARISON: [facility], CT, CT ABD PELVIS W CON, 07/26/2016, 21:16. [facility], CR, XR GASTROGRAF CHALLENG 1VW ABD, 07/27/2016, 17:01. FINDINGS: Surgical changes and devices: None. Bowel: Multilevel dilated loops of small bowel are redemonstrated throughout the midabdomen. Contrast is likely present within the sigmoid colon and the rectosigmoid region. Soft tissues: No suspicious abdominal calcifications. Visualized solid organ contours appear normal in size. Bones: No suspicious bony lesions. IMPRESSION: 1. Persistent dilated loops of small bowel throughout the mid abdomen with probable contrast within the sigmoid colon and rectosigmoid region. These findings favor ileus over obstruction; however opacification of the sigmoid is faint and these findings are somewhat equivocal. If further characterization is warranted, CT of the pelvis to evaluate for distal colonic contrast may be helpful. Dictated by: Juliette Ngo M.D. on 07/28/2016 at 13:40 Approved by: Juliette Ngo M.D. on 07/28/2016 at 13:46 Brief History Abdulkadir Mccain is a 66 year old male with Hypertension, Aortic Valve replacement and Chronic A fib and recent diagnosis of left rib fracture presenting to the emergency department complaining of worsening pain associated with shortness of breath. Patient reported not having a bowel movement since before Saturday. Decreased appetite with abdominal discomfort with feeling bloated. Cause trouble taking a deep breathe. He is passing a little bit of gas. Denies abdominal pain, fever, chills, nausea, vomiting, or cough. No prior history of small bowel obstructions. Currently on daily regimen on [place] but patient does not take a laxative daily Pt seen in the ED one week ago and diagnosed with L rib fracture without pneumothorax due to traumatic injury Hospital Course Abdulkadir Mccain is a 66 year old male with Hypertension, Aortic Valve replacement and Chronic A fib and recent diagnosis of left rib fracture presenting to the emergency department complaining of worsening pain associated with shortness of breath. Found to have a bowel obstruction. # Acute Small bowel obstruction versus ileus. Present on admission. Ileus is improved with conservative management He was able to tolerate a regular diet prior to discharge. Passing gas and having regular bowel movement # Chronic Atrial fibrillation on anticoagulation Heart rate is under control. INR within therapeutic level. Continue Coumadin at previous dose and follow-up INR with primary care doctor in 3-5 days # Chronic pain syndrome on narcotic recent left rib fracture after a fall. -Cut down and narcotics discussed. He was initially on 10 mg of oxycodone which is cut down to 5 mg 3 times a day PRN # Aortic Valve replacement - Continue anticoagulations with Coumadin # Hypertension ; controlled - On Lisinopril # Hypokalemia and hypomagnesemia: Resolved Follow-up with primary care doctor in 3 -5 days to check basic metabolic panel Patient physician home in stable condition. Seen by surgery over the course of hospitalization. Surgery signed off Exam Vital Signs (Last) Date Time Temp Pulse Resp B/P Pulse Ox O2 Delivery O2 Flow Rate FiO2 08/02/16 13:20 36.6 92 18 102/58 93 Room Air Exam Gen : Well-nourished male, in bed comfortably. No acute distress Neck: Supple, no JVD, trachea is midline Chest: Normal respiratory effort, chest wall tenderness Plan: Clear bilaterally, no crackle ,no wheezing, no rales Heart, S1-S2 irregular Abdomen: Distended, non tender, soft. No palpable mass. Bowel sounds normal. Extremity: 2+ edema: No cyanosis . no calf tenderness Neuro : Grossly non focal. AAO x 3 Test 07/26/16 20:27 07/26/16 22:18 08/01/16 05:15 08/02/16 05:08 Lactic Acid Level 1.0mmol/L (0.4-2.0) Lipase 11U/L (13-60) Urine Color Dark yellow (YELLOW) Urine Appearance Clear (CLEAR,HAZY) Urine pH 5.0 (5.0-8.0) Urine Specific [place] 1.025 (1.003-1.035) Urine Protein Tracemg/dL (NEG,TRACE) Urine Glucose (UA) Negativemg/dL (NEGATIVE) Urine Ketones Negativemg/dL (NEGATIVE) Urine Occult Blood Trace (NEGATIVE) Urine Nitrite Negative (NEGATIVE) Urine Bilirubin Moderate (NEGATIVE) Urine Ictotest Positive (Negative) Urine Urobilinogen 1.0mg/dL (NORMAL) Urine Leukocyte Esterase Negative (NEGATIVE) Urine RBC 11-50/hpf (0-2) Urine WBC 0-5/hpf (0-5) Urine Epithelial Cells Moderate/hpf (NONE-MOD) Urine Crystals Amorphous urates (NONE Urine Bacteria Few/hpf (NONE-FEW) Urine Hyaline Casts 5/20/lpf (NONE) Urine Granular Casts None seen (NONE SEEN) Urine Waxy Casts None seen (NONE SEEN) Urine Red Blood Cell Casts None seen (NONE SEEN) Urine White Blood Cell Casts None seen (NONE SEEN) Urine Mucus Present (None Seen) Urine Trichomonas None seen (NONE SEEN) Urine Yeast None (NONE SEEN) Urinalysis Comment None Urine Culture Reflexed Not indicated White Blood Count 5.0th/mm3 (3.8-10.1) Red Blood Count 4.17mil/mm3 (4.40-5.80) Hemoglobin 12.0g/dL (13.8-17.2) Hematocrit 37.5% (41.0-50.0) Mean Corpuscular Volume 89.9fL (81-100) Mean Corpuscular Hemoglobin 28.8pg (27.0-35.0) Mean Corpuscular Hemoglobin Concent 32.0% (32.0-37.0) Red Cell Distribution Width 14.1% (12.3-15.4) Platelet Count 215bil/L (150-400) Neutrophils (%) (Auto) 64.7% (40-74) Lymphocytes (%) (Auto) 16.6% (14-46) Monocytes (%) (Auto) 14.1% (4-12) Eosinophils (%) (Auto) 4.0% (0-5) Basophils (%) (Auto) 0.2% (0-3) Magnesium Level 1.7mg/dL (1.6-2.6) Sodium Level 140mEq/L (134-144) Potassium Level 3.4mEq/L (3.5-5.2) Chloride Level 103mEq/L (97-108) Carbon Dioxide Level 24mmol/L (18-29) Blood Urea Nitrogen 6mg/dL (8-27) Creatinine 0.75mg/dL (0.76-1.27) Estimat Glomerular Filtration Rate 111mL/min (>59) Glucose Level 105mg/dL (60-99) Calcium Level 8.9mg/dL (8.5-10.1) Total Bilirubin 0.9mg/dL (0.0-1.2) Aspartate Amino Transf (AST/SGOT) 33U/L (0-50) Alanine Aminotransferase (ALT/SGPT) 25U/L (0-44) Alkaline Phosphatase 95U/L (25-160) Total Protein 5.8g/dL (6.4-8.4) Albumin 3.5g/dL (3.4-5.0) Test 08/02/16 07:30 Prothrombin Time 33.0sec (8.1-12.5) Prothromb Time International Ratio 3.02ratio Discharge Medications Discharge Medications Amiodarone (Amiodarone) 200 Mg Tablet 200 MG PO HS (Reported) Carvedilol (Carvedilol) 6.25 Mg Tablet 6.25 MG PO BID (Reported) Lisinopril (Lisinopril) 10 Mg Tablet 10 MG PO HS (Reported) Methocarbamol (Robaxin-750) 750 Mg Tablet 750 MG PO BID (Reported) Warfarin Sodium (Coumadin) 7.5 Mg Tablet 7.5 MG PO every S, T, Th, Sat (Reported ) Warfarin Sodium (Coumadin) 5 Mg Tablet 5 MG PO every M, W, F (Reported) As needed Hydrocodone-Acetaminophen 5-325 mg (Hydrocodone-Acetaminophen 5-325 mg) 1 Each Tablet 1 TABLET PO Q8H PRN PRN For Mild Pain Prescribed by: VIRA LLANOS MD Followup Plan Disposition: Home Discharge Diet: Low fat, Low Sodium Discharge Activity: No restrictions Patient Instructions Follow with primary Care doctor in one week to arrange for colonoscopy BMP in 3 days to monitor potassium level with PCP Follow-up with PCP in: 1 week (Primary Care doctor ) Time spent 35 minutes Patient seen and examined on the day of discharge. All aspect of discharge discussed with patient and details, all his questions and concerns were addressed Vira Llanos MD Aug 02, 2016 17:45
== END 2016-08-02 14:38 | disposition home or self-care (01) | DRG 390 ==
LOC: SED 19:29 → OBSVTOIN 22:44 → OSC 22:44
PROVIDERS: ADMIT Hospitalist; ATTEND Hospitalist
PROC: 0D9670Z Drainage of Stomach with Drainage Device, Via Natural or Artificial Opening (ICD-10-PCS; principal; 2016-07-27)
DX: K56.0 Paralytic ileus (principal); G89.4 Chronic pain syndrome; Z79.01 Long term (current) use of anticoagulants; Z95.2 Presence of prosthetic heart valve; Z95.810 Presence of automatic (implantable) cardiac defibrillator; R79.1 Abnormal coagulation profile; I48.2 Chronic atrial fibrillation; I10 Essential (primary) hypertension